=== PATIENT | female | born 1945 | race Caucasian/White ===

== ENCOUNTER 2017-01-26 19:51 | Inpatient (IN) | payer OTHER, MEDICARE ==
[~2017-01-26] VITALS: Ht 157.5 cm; Wt 56.0 kg
[~2017-01-26 19:51] MED LIST: BACT PO; CLIN1CAP6 PO; COUM5TAB PO; LEVO.125 PO; LOSA25TA31 PO; LOVA40TA OR; METH2.5 OR; METO10TA PO; PERC10TA27 PO; TOPR50TA PO; VISI0.053 OP
[2017-01-26 20:00] VITALS: BP 94/51; PULSE 102; RESP 20; TEMP 98.7; O2SAT 97
[2017-01-26] MEDS ORDERED: SODIUM CHLORIDE 0.9% FLUSH 10 ML FLUSH IVF PRN ×2 (20:15→23:00)
[2017-01-26 20:19] VITALS: O2SAT 97
--- NOTE | 2017-01-26 20:21 | PD ---
HPI Chief Complaint: Fall Time Seen by Provider: 20:14 Travel History International Travel<30 days: No Contact w/Intl Traveler<30days: No Traveled to known affect area: No History of Present Illness HPI 71-year-old female presents to the emergency department by EMS transport from home for evaluation of weakness of both lower extremity. According to the patient she has chronic low back pain and has a right buttock in situ neurostimulator. Patient states she was feeling well yesterday preparing breakfast and was sitting down in her chair and fell out of the chair. Patient states she does not recall any precipitating event does not recall being dizzy or having palpitations or chest pain prior to her fall patient states when she did fall of her chair she did land on her back and did hit her head. Patient denies any loss of consciousness. Patient denies any neck pain. Patient denies any upper or lower extremity numbness tingling or weakness at the time of her fall. Patient was able to get up off the floor on her own. Patient states no back pain or pelvic pain abdominal pain chest pain rib pain or shortness of breath. No nausea or vomiting. There is an insect bite or that since last evening she started noticing some weakness in both of her legs. Patient states overnight she found that she was unable to get up off the bed by herself and today contacted her primary care provider Dr. Ragsdale encouraged her to come to the hospital for evaluation. Patient states that she has had no bladder or bowel dysfunction and neighbors helped her get up to the bathroom by caring her to the bathroom so that she could urinate and have a bowel movement. Patient states she does not have any saddle anesthesia. Patient does note new weakness in her lower extremities. Patient has some low back pain. Patient rates her pain 5/10 in intensity. 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 [facility] Past Medical History Narrative Medical Coumadin therapy, dyslipidemia, CVA 3 with left residual, diabetes, hypertension, chronic back pain, nerve stimulator, shingles; hysterectomy; no tobacco use; nursing notes reviewed Hx Anticoagulant Therapy: Yes Arthritis: Yes Cardiovascular Problems: Yes (htn on meds, hx of 5 vessel bypass) High Cholesterol: Yes Cerebrovascular Accident: Yes (x3) Diabetes: Yes Patient Takes Glucophage: No Diminished Hearing: No Hypertension: Yes Musculoskeletal: Yes Neurologic: Yes (neurostimulator left buttock) Integumentary: Yes (?shingles) Triglycerides - High: Yes Tetanus Vaccination: > 5 Years Influenza Vaccination: Yes ?: Not : 1 Para: 1 Past Surgical History Hysterectomy: Yes Social History Alcohol Use: Yes (occ) Tobacco Use: No Substance Use: No Allergies-Medications (Allergen,Severity, Reaction): Coded Allergies: nitrofurantoin (Unverified Allergy, Severe, throat swells, 12/22/16) nystatin (Unverified Allergy, Severe, THROAT SWELLING, 12/22/16) pt states have a allergy to macrodtin Reported Meds & Prescriptions Reported Meds & Active Scripts Active Reported Isosorbide Mononitrate 20 Mg Tab 60 Mg PO DAILY Take 2 doses 7 hours apart. Brimonidine Opth Drops (Brimonidine Tartrate) 0.2% Soln 1 Drop EACH EYE TID Synthroid (Levothyroxine Sodium) 112 Mcg Tab 112 Mcg PO DAILY Lisinopril 20 Mg Tab 20 Mg PO BID Tizanidine (Tizanidine HCl) 4 Mg Cap 4 Mg PO TID Methotrexate 2.5 Mg Tab 7.5 Mg PO Q7D Metoclopramide (Metoclopramide HCl) 10 Mg Tab 10 Mg PO BID Alendronate (Alendronate Sodium) 70 Mg Tab 70 Mg PO Q7D Tramadol (Tramadol HCl) 50 Mg Tab 50 Mg PO Q8H PRN Norvasc (Amlodipine Besylate) 10 Mg Tab 10 Mg PO DAILY Metoprolol Tartrate 50 Mg Tab 50 Mg PO DAILYHS Baclofen 10 Mg Tab 10 Mg PO TID Acyclovir 800 Mg Tab 800 Mg PO 5 TIMES A DAY Gabapentin 300 Mg Cap 300 Mg PO BID Physical Exam Narrative GENERAL: Well-developed well-nourished female in no acute distress no respiratory distress; GCS 15 SKIN: Warm and dry. HEAD: Atraumatic. Normocephalic. Scalp nontender no soft tissue swelling no ecchymosis no abrasion or laceration no bony abnormalities. EYES: Pupils equal and round. Extraocular muscles intact. No scleral icterus. No injection or drainage. ENT: No nasal bleeding or discharge. Mucous membranes pink and moist. Airway is patent. NECK: Trachea midline. No JVD. Neck is nontender to direct palpation along the cervical spine; no midline tenderness no bony step-off. CARDIOVASCULAR: Regular rate and rhythm. Chest wall: Nontender to palpation no point tenderness no ecchymosis or abrasion. RESPIRATORY: No accessory muscle use. Clear to auscultation. Breath sounds equal bilaterally. GASTROINTESTINAL: Abdomen soft, non-tender, nondistended. Hepatic and splenic margins not palpable. MUSCULOSKELETAL: Extremities without clubbing, cyanosis, or edema. No obvious deformities. NEUROLOGICAL: Awake and alert. No obvious cranial nerve deficits. Motor grossly within normal limits. Five out of 5 muscle strength in the bilateral arms and and right lower extremity left lower extremity is 4-5 over 5 against resistance and patient states this is her normal. Pinprick and light touch sensation intact. No clonus. No pronator drift. Normal speech. PSYCHIATRIC: Appropriate mood and affect; insight and judgment normal. Data Data Last Documented VS Vital Signs Date Time Temp Pulse Resp B/P (MAP) Pulse Ox O2 Delivery O2 Flow Rate FiO2 01/26/17 22:52 85 20 142/65 (90) 97 Room Air 01/26/17 20:00 98.7 Orders Orders Electrocardiogram (01/26/17 20:14) Basic Metabolic Panel (Bmp) (01/26/17 20:14) Complete Blood Count With Diff (01/26/17 20:14) Troponin I (01/26/17 20:14) Act Partial Throm Time (Ptt) (01/26/17 20:14) Prothrombin Time / Inr (Pt) (01/26/17 20:14) Urinalysis - C+S If Indicated (01/26/17 20:14) Chest, Single Ap (01/26/17 20:14) Ecg Monitoring (01/26/17 20:14) Iv Access Insert/Monitor (01/26/17 20:14) Oximetry (01/26/17 20:14) Sodium Chloride 0.9% Flush (Ns Flush) (01/26/17 20:15) Spine, Lumbar - Ltd (Ap & Lat) (01/26/17 ) Pelvis, Ap Only (Routine) (01/26/17 ) Ct Brain W/O Iv Contrast(Rout) (01/26/17 ) Type And Screen (01/26/17 21:03) Ct Abd/Pel W/O Iv Contrast (01/26/17 ) Sodium Chlor 0.9% 1000 Ml Inj (Ns 1000 M (01/26/17 21:45) Admit To Inpatient (01/26/17 ) Vital Signs (Adult) Q4H (01/26/17 21:59) Neuro Checks Q4H (01/26/17 21:59) Activity Oob With Assistance (01/26/17 21:59) Blasting Cap Assembler / Telemetry .CONTINUOUS (01/26/17 21:59) Diet Heart Healthy (01/27/17 Breakfast) Sodium Chloride 0.9% Flush (Ns Flush) (01/26/17 22:00) Sodium Chloride 0.9% Flush (Ns Flush) (01/27/17 09:00) Basic Metabolic Panel (Bmp) (01/27/17 06:00) Complete Blood Count With Diff (01/27/17 06:00) Creatine Kinase (Cpk) (01/27/17 03:00) Creatine Kinase (Cpk) (01/27/17 09:00) Troponin I (01/27/17 03:00) Troponin I (01/27/17 09:00) Electrocardiogram (01/27/17 03:00) Electrocardiogram (01/27/17 09:00) Pt Request For Service (01/26/17 21:59) Case Management Consult (01/26/17 21:59) Naloxone Inj (Narcan Inj) (01/26/17 22:00) Inpatient Certification (01/26/17 ) Labs Laboratory Tests Test 01/26/17 20:35 White Blood Count 12.8 TH/MM3 Red Blood Count 4.39 MIL/MM3 Hemoglobin 13.3 GM/DL Hematocrit 39.5 % Mean Corpuscular Volume 90.0 FL Mean Corpuscular Hemoglobin 30.3 PG Mean Corpuscular Hemoglobin Concent 33.7 % Red Cell Distribution Width 13.7 % Platelet Count 445 TH/MM3 Mean Platelet Volume 7.2 FL Neutrophils (%) (Auto) 72.8 % Lymphocytes (%) (Auto) 16.1 % Monocytes (%) (Auto) 10.5 % Eosinophils (%) (Auto) 0.2 % Basophils (%) (Auto) 0.4 % Neutrophils # (Auto) 9.3 TH/MM3 Lymphocytes # (Auto) 2.1 TH/MM3 Monocytes # (Auto) 1.4 TH/MM3 Eosinophils # (Auto) 0.0 TH/MM3 Basophils # (Auto) 0.0 TH/MM3 CBC Comment DIFF FINAL Differential Comment Prothrombin Time 11.7 SEC Prothromb Time International Ratio 1.1 RATIO Activated Partial Thromboplast Time 32.2 SEC Blood Urea Nitrogen 29 MG/DL Creatinine 1.43 MG/DL Random Glucose 133 MG/DL Calcium Level 9.2 MG/DL Sodium Level 130 MEQ/L Potassium Level 3.7 MEQ/L Chloride Level 95 MEQ/L Carbon Dioxide Level 24.8 MEQ/L Anion Gap 10 MEQ/L Estimat Glomerular Filtration Rate 36 ML/MIN Troponin I 0.46 NG/ML [facility] Medical Decision Making Medical Screen Exam Complete: Yes Emergency Medical Condition: Yes Medical Record Reviewed: Yes Interpretation(s) EKG: Sinus tachycardia rate [address] elevation or injury pattern, prominent T waves V3; marked artifact is likely related to in situ neurostimulator questionable QS septally in V1 V2 CT brain w/o contrast: CONCLUSION: 1. Mild periventricular white matter small vessel ischemic changes bilaterally. 2. Probable old tiny lacunar infarcts within the right putamen. 3. Mild cerebral atrophy. 4. No acute hemorrhage, acute infarct, mass effect or extra-axial fluid collections. Vinayak Preciado MD on January 26, 2017 at 21:01 CBC & BMP Diagram 01/26/17 20:35 Calcium Level 9.2 Troponin I 0.47, elevated Last Impressions Chest X-Ray 01/26/172013 Signed Impressions: Service Date/Time: Thursday, January 26, 2017 20:28 - CONCLUSION: No acute cardiopulmonary disease. Vinayak Preciado MD Pelvis X-Ray 01/26/17 0000 Signed Impressions: Service Date/Time: Thursday, January 26, 2017 20:34 - CONCLUSION: 1. No acute fracture or dislocation. 2. Mild degenerative changes and scoliosis of the lower lumbar spine. 3. Mild degenerative changes involving the left hip joint. Vinayak Preciado MD Lumbar Spine X-Ray 01/26/17 0000 Signed Impressions: Service Date/Time: Thursday, January 26, 2017 20:35 - CONCLUSION: 1. Severe degenerative disc disease at L4-5 and L5-S1. 2. Mild compression deformity involving T12 of indeterminate age. 3. Degenerative changes and scoliosis of the lumbar spine. Vinayak Preciado MD Head CT 01/26/17 0000 Signed Impressions: Service Date/Time: Thursday, January 26, 2017 20:34 - CONCLUSION: 1. Mild periventricular white matter small vessel ischemic changes bilaterally. 2. Probable old tiny lacunar infarcts within the right putamen. 3. Mild cerebral atrophy. 4. No acute hemorrhage, acute infarct, mass effect or extra-axial fluid collections. 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 @ 9:45 PM patient reassessed after returning from imaging studies states intermittently having pain into the lower extremities denies any low back pain or buttock pain denies any numbness; rectal exam performed normal sphincter tone brown stool that is Hemoccult negative; repeat blood pressure 81/47. Patient denies any other concerns or complaints denies chest pain shortness of breath upper back pain or abdominal pain. Patient given bolus of normal saline CT abdomen and pelvis ordered noncontrast in view of renal insufficiency At 11 PM patient has been admitted for generalized weakness, elevated troponin I /non-STEMI and acute kidney injury; patient is aware of elevated troponin I; patient also complains of generalized weakness affecting the lower extremities but now after receiving 1 L of normal saline patient reports that her legs feel fine and she does not complain of any weakness at this time continues to deny any chest pain or shortness of breath denies any nausea has had no vomiting and denies any referred neck jaw upper back shoulder arm pain. Patient still complains of some mild discomfort to her lower lumbar spine which she states is chronic for her. Diagnosis Primary Impression: Generalized weakness Additional Impressions: NSTEMI, initial episode of care WINSOME (acute kidney injury) Margie Nieves MD Jan 26, 2017 20:21
[2017-01-26 20:57] LABS: AUTOMATED NEUTROPHIL # 9.3 TH/MM3 (1.8-7.7); BASOPHIL % 0.4 % (0.0-2.0); EOSINOPHIL % 0.2 % (0.0-4.0); HEMATOCRIT 39.5 % (35.0-46.0); HEMO FLAGS DIFF FINAL; LYMPH % 16.1 % (9.0-44.0); LYMPHOCYTE # 2.1 TH/MM3 (1.0-4.8); MEAN CORPUSCULAR HEMOGLOBIN 30.3 PG (27.0-34.0); MEAN CORPUSCULAR HGB CONC 33.7 % (32.0-36.0); MONO % 10.5 % (0.0-8.0); NEUT % 72.8 % (16.0-70.0); PLATELET COUNT 445 TH/MM3 (150-450); RED BLOOD COUNT 4.39 MIL/MM3 (4.00-5.30); RED CELL DISTRIBUTION WIDTH 13.7 % (11.6-17.2); WHITE BLOOD COUNT 12.8 TH/MM3 (4.0-11.0)
[2017-01-26 21:07] LABS: BICARBONATE 24.8 MEQ/L (21.0-32.0); POTASSIUM 3.7 MEQ/L (3.5-5.1)
[2017-01-26 21:09] LABS: APTT (PATIENT) 32.2 SEC (24.3-30.1); INTERNATIONAL NORMALIZED RATIO 1.1 RATIO; PROTHROMBIN TIME - PATIENT 11.7 SEC (9.8-11.6)
--- NOTE | 2017-01-26 21:15 | RADRPT ---
EXAM DATE/TIME: 01/26/2017 20:28 [facility] COMPARISON: No previous studies available for comparison. INDICATIONS : Fall, chest pain. MEDICAL HISTORY : Cardiovascular disease. SURGICAL HISTORY : CABG. ENCOUNTER: Initial ACUITY: 2 days PAIN SCORE: 1/10 LOCATION: Bilateral chest FINDINGS: Median sternotomy wires are noted status post cardiac surgery. The heart is top normal in size. The pulmonary vascular pattern is normal. The lungs are clear. CONCLUSION: No acute cardiopulmonary disease. Vianyak Preciado MD on January 26, 2017 at 21:13 Board Certified Radiologist. This report was verified electronically.
--- NOTE | 2017-01-26 21:21 | RADRPT ---
EXAM DATE/TIME: 01/26/2017 20:34 [facility] COMPARISON: No previous studies available for comparison. INDICATIONS : Fell and hit head. RADIATION DOSE: 32.94 CTDIvol (mGy) MEDICAL HISTORY : None SURGICAL HISTORY : None. ENCOUNTER: Initial ACUITY: 1 day PAIN SCALE: 5/10 LOCATION: Cranial TECHNIQUE: Multiple contiguous axial images were obtained of the head. Using automated exposure control and adj ustment of the mA and/or kV according to patient size, radiation dose was kept as low as reasonably a chievable to obtain optimal diagnostic quality images. DICOM format image data is available electro nically for review and comparison. FINDINGS: Mild periventricular white matter small vessel ischemic changes are noted bilaterally. Mild cerebral atrophy is noted. There are probable old lacunar infarcts involving the right putamen. There is no acute hemorrhage, midline shift or extra-axial fluid collections. No acute infarction is noted. CONCLUSION: 1. Mild periventricular white matter small vessel ischemic changes bilaterally. 2. Probable old tiny lacunar infarcts within the right putamen. 3. Mild cerebral atrophy. 4. No acute hemorrhage, acute infarct, mass effect or extra-axial fluid collections. Vinayak Preciado MD on January 26, 2017 at 21:01 Board Certified Radiologist. This report was verified electronically.
--- NOTE | 2017-01-26 21:26 | RADRPT ---
EXAM DATE/TIME: 01/26/2017 20:34 [facility] COMPARISON: No previous studies available for comparison. INDICATIONS : Fall, pelvic pain. MEDICAL HISTORY : None. SURGICAL HISTORY : Right hip replacement ENCOUNTER: Initial ACUITY: 2 days PAIN SCORE: 2/10 LOCATION: Bilateral pelvis FINDINGS: There is no acute fracture or dislocation of the bony pelvis. A right total hip replacement is noted. Mild degenerative changes are noted involving the left hip joint. Stimulator device is noted overly ing the left iliac bone. Mild degenerative changes and scoliosis of the lower lumbar spine are noted . CONCLUSION: 1. No acute fracture or dislocation. 2. Mild degenerative changes and scoliosis of the lower lumbar spine. 3. Mild degenerative changes involving the left hip joint. Vinayak Preciado MD on January 26, 2017 at 21:14 Board Certified Radiologist. This report was verified electronically.
--- NOTE | 2017-01-26 21:29 | RADRPT ---
EXAM DATE/TIME: 01/26/2017 20:35 [facility] COMPARISON: No previous studies available for comparison. INDICATIONS : Fall yesterday, low back pain MEDICAL HISTORY : None. SURGICAL HISTORY : Spinal stimulator ENCOUNTER: Initial ACUITY: 2 days PAIN SCORE: 5/10 LOCATION: Low back FINDINGS: Mild degenerative changes and scoliosis of the lumbar spine are noted. There is severe disc space na rrowing at L4-5 and L5-S1 as well as vacuum disc phenomenon at these levels. Mild compression deform ity involving the T12 vertebral body is noted and is of indeterminate age. Clinical correlation is r ecommended. Pain stimulator device is noted with its leads extending into the thoracic spinal canal. CONCLUSION: 1. Severe degenerative disc disease at L4-5 and L5-S1. 2. Mild compression deformity involving T12 of indeterminate age. 3. Degenerative changes and scoliosis of the lumbar spine. Vinayak Preciado MD on January 26, 2017 at 21:15 Board Certified Radiologist. This report was verified electronically.
[2017-01-26] MEDS ORDERED: SODIUM CHLOR 0.9% 1000 ML INJ 1,000 ML IV ONE (21:45)
[2017-01-26 21:50] VITALS: BP 81/42; PULSE 97
[2017-01-26] MEDS ORDERED: SODIUM CHLORIDE 0.9% FLUSH 10 ML FLUSH IV FLUSH PRN (22:00)
[2017-01-26] MEDS ORDERED: NALOXONE HCL 0.4 MG/ML AMP IV PUSH PRN (22:00)
[2017-01-26] MEDS: SODIUM CHLORIDE 0.9% FLUSH 10 ML FLUSH IV FLUSH SCH (22:12)
[2017-01-26] MEDS ORDERED: TIZA4CAP3 PO (22:23)
[2017-01-26] MEDS ORDERED: BACL10TA PO (22:23)
[2017-01-26] MEDS ORDERED: METH2.5T PO (22:23)
[2017-01-26] MEDS ORDERED: METO50TA PO (22:23)
[2017-01-26] MEDS ORDERED: METO10TA PO (22:23)
[2017-01-26] MEDS ORDERED: AMLO10 PO (22:23)
[2017-01-26] MEDS ORDERED: GABA300C5 PO (22:23)
[2017-01-26] MEDS ORDERED: ACYC800T PO (22:23)
[2017-01-26] MEDS ORDERED: SYNT112T PO (22:23)
[2017-01-26] MEDS ORDERED: ALEN1TAB48 PO (22:23)
[2017-01-26] MEDS ORDERED: TRAM50TA PO (22:23)
[2017-01-26] MEDS ORDERED: LISI-515 PO (22:23)
[2017-01-26] MEDS ORDERED: BRIM0.2S4 EACH EYE (22:24)
[2017-01-26] MEDS ORDERED: ISOS20TA PO (22:24)
--- NOTE | 2017-01-26 22:46 | RADRPT ---
EXAM DATE/TIME: 01/26/2017 22:01 [facility] COMPARISON: No previous studies available for comparison. INDICATIONS : Trauma, fall. Lower back pain. ORAL CONTRAST: No oral contrast ingested. RADIATION DOSE: 9.96 CTDIvol (mGy) MEDICAL HISTORY : Hypertension. Cardiovascular disease Cerebrovascular disease. Diabetes. SURGICAL HISTORY : Hysterectomy. CABG Neurostimulator. ENCOUNTER: Initial ACUITY: 1 day PAIN SCALE: 5/10 LOCATION: Bilateral lower quadrant TECHNIQUE: Volumetric scanning of the abdomen and pelvis was performed. Using automated exposure control and ad justment of the mA and/or kV according to patient size, radiation dose was kept as low as reasonably achievable to obtain optimal diagnostic quality images. DICOM format image data is available electro nically for review and comparison. FINDINGS: Evaluation of the solid organs of the abdomen is limited by the lack of intravenous contrast. Uncomp licated sigmoid diverticulosis is noted. There is no acute diverticulitis. A small hiatal hernia is noted. Vascular calcifications are noted within the both kidneys. There is a mild compression defor mity involving the T12 vertebral body which is likely chronic. Severe degenerative disc disease is n oted at L4=5 and L5-S1. Neurostimulator device is noted with its leads extending into the midthoraci c spine. Mitral annulus calcification is noted. Extensive calcifications are noted involving the ab dominal aorta and visceral arteries. The patient is status post cholecystectomy. Nodular scarring i s noted within the right posterior-lateral lung base. Scoliosis and degenerative changes of the thor acolumbar spine are noted. CONCLUSION: 1. Uncomplicated sigmoid diverticulosis. 2. Mild chronic compression deformity involving T12. 3. Degenerative changes and scoliosis of the thoracolumbar spine. 4. Severe degenerative disc disease at L4-5 and L5-S1. 5. No acute obstructive uropathy. Vinayak Preciado MD on January 26, 2017 at 22:28 Board Certified Radiologist. This report was verified electronically.
[2017-01-26 22:52] VITALS: BP 142/65; PULSE 85; RESP 20; O2SAT 97
[2017-01-26 23:02] VITALS: O2SAT 97
--- NOTE | 2017-01-26 23:25 | EKG ---
Date Performed: 01/26/2017 Time Performed: 20:13:59 PTAGE: 71 years EKG: Normal Sinus rhythm Non-specific ST/T wave changes Possible LVH NO PREVIOUS TRACING DOCTOR: Matt Ulrich Interpretating Date/Time 01/26/2017 23:24:03
--- NOTE | 2017-01-26 23:46 | HHI.HP ---
[facility] Columba Daniels MD Admission Diagnosis nstemi; chronic back pain; winsome Diagnoses: (1) NSTEMI, initial episode of care (2) WINSOME (acute kidney injury) (3) Generalized weakness (4) Chronic back pain Chief Complaint: Generalized weakness; inability to walk Travel History International Travel<30 Days: No Contact w/Intl Traveler <30 Da: No Traveled to Known Affected Are: No History of Present Illness Written by Rayna Woodall, acting as scribe for Dr. Sharma on 01/26/17 at 23:45. The patient states that she was unable to walk at home. She reports pain in her back. She fell yesterday on her back while attempting to stand up from a sitting position in a chair: denies dizziness, palpitations, chest pain, dizziness, diaphoresis, or nausea. She reports that she hit her head when she fell. She was able to get herself up after the fall and was able to walk around but states she was sweating from exertion of getting herself up. Legs were "all wobbly" today; friends came to help her get around and with food. She called her PCP today and he advised her to go to ER History of CVA with residual mild left hemiparesis The patient reports shingles and is taking Neurontin and Acyclovir - has only taken two days worth Denies nausea, vomiting, diarrhea, black or red stool. Dr. Hill pain management Dr. Kitchen cardiology . Review of Systems Except as stated in HPI: all other systems reviewed are Neg Past Family Social History Past Medical History Hypertension Diabetes mellitus DVT in right leg - was on Coumadin for this x 6 months - about 10 - 15 years ago CAD s/p CABG x 5 about 3 years ago CVA 2 - 3 years ago Hypothyroidism Mitral valve disease Denies CHF, atrial fibrillation, COPD, asthma, liver problems, kidney problems, PE, seizures, or cancers . Past Surgical History CABG x 5 - 3 years ago Neurostimulator placement Hysterectomy Cholecystectomy Exploratory laps with lysis of adhesions - multiple (5) Right hip replacement . Reported Medications Reported Meds & Active Scripts Active Reported Isosorbide Mononitrate 20 Mg Tab 60 Mg PO DAILY Take 2 doses 7 hours apart. Brimonidine Opth Drops (Brimonidine Tartrate) 0.2% Soln 1 Drop EACH EYE TID Synthroid (Levothyroxine Sodium) 112 Mcg Tab 112 Mcg PO DAILY Lisinopril 20 Mg Tab 20 Mg PO BID Tizanidine (Tizanidine HCl) 4 Mg Cap 4 Mg PO TID Methotrexate 2.5 Mg Tab 7.5 Mg PO Q7D Metoclopramide (Metoclopramide HCl) 10 Mg Tab 10 Mg PO BID Alendronate (Alendronate Sodium) 70 Mg Tab 70 Mg PO Q7D Tramadol (Tramadol HCl) 50 Mg Tab 50 Mg PO Q8H PRN Norvasc (Amlodipine Besylate) 10 Mg Tab 10 Mg PO DAILY Metoprolol Tartrate 50 Mg Tab 50 Mg PO DAILYHS Baclofen 10 Mg Tab 10 Mg PO TID Acyclovir 800 Mg Tab 800 Mg PO 5 TIMES A DAY Gabapentin 300 Mg Cap 300 Mg PO BID From [facility] pharmacy: Eliquis 2.5 mg BID p.o. Cholesterol medication . Allergies: Coded Allergies: nitrofurantoin (Unverified Allergy, Severe, throat swells, 12/22/16) nystatin (Unverified Allergy, Severe, THROAT SWELLING, 12/22/16) pt states have a allergy to macrodtin Active Ordered Medications Current Medications Sodium Chloride (NS Flush) 2 ml UNSCH PRN IVF FLUSH AFTER USING IV ACCESS; Start 01/26/17 at 20:15; Stop 01/26/17 at 22:06; Status DC Sodium Chloride 1,000 ml @ 999 mls/hr BOLUS ONCE IV Last administered on 01/26t 22:12; Start 01/26/17 at 21:45; Stop 01/26/17 at 22:45; Status DC Sodium Chloride (NS Flush) 2 ml UNSCH PRN IV FLUSH FLUSH AFTER USING IV ACCESS ; Start 01/26/17 at 22:00 Sodium Chloride (NS Flush) 2 ml BID IV FLUSH ; Start 01/27/17 at 09:00 Naloxone HCl (Narcan Inj) 0.4 mg UNSCH PRN IV PUSH SEE LABEL COMMENTS; Start at 22:00 Sodium Chloride (NS Flush) 2 ml BID IV FLUSH ; Start 01/27/17 at 09:00; Stop at 09:00; Status DC Sodium Chloride (NS Flush) 2 ml UNSCH PRN IVF FLUSH AFTER USING IV ACCESS; Start 01/26/17 at 23:00; Stop 01/26/17 at 23:02; Status DC . Family History Mother from colon cancer Father from brain cancer Brother with diabetes mellitus Sisters x 2 with diabetes Social History Quit smoking 10 years ago Occasional glass of wine Denies illicit drugs Lives alone Drives self . Physical Exam Vital Signs Vital Signs Date Time Temp Pulse Resp B/P (MAP) Pulse Ox O2 Delivery O2 Flow Rate FiO2 01/26/17 23:02 97 01/26/17 22:52 85 20 142/65 (90) 97 Room Air 01/26/17 21:50 97 81/42 (55) 01/26/17 20:19 97 Room Air 01/26/17 20:00 98.7 102 20 94/51 (65) 97 Physical Exam GENERAL: This is an elderly female patient, in no apparent distress. SKIN: No rashes, ecchymoses or lesions. Cool and dry. HEAD: Atraumatic. Normocephalic. EYES: No scleral icterus. No injection or drainage. ENT: Nose without bleeding, purulent drainage or septal hematoma. Airway patent. NECK: Trachea midline. No JVD or lymphadenopathy. Supple, nontender, no meningeal signs. CARDIOVASCULAR: Regular rate and rhythm without gallops or rubs. + systolic murmur auscultated throughout the precordium. RESPIRATORY: Clear to auscultation. Breath sounds equal bilaterally. No wheezes , rales, or rhonchi. GASTROINTESTINAL: Abdomen soft, non-tender, nondistended. MUSCULOSKELETAL: Extremities without clubbing, cyanosis, or edema. No calf tenderness. NEUROLOGICAL: Awake and alert. Motor and sensory grossly within normal limits. Normal speech. . Laboratory Laboratory Tests Test 01/26/17 20:35 White Blood Count 12.8 Red Blood Count 4.39 Hemoglobin 13.3 Hematocrit 39.5 Mean Corpuscular Volume 90.0 Mean Corpuscular Hemoglobin 30.3 Mean Corpuscular Hemoglobin Concent 33.7 Red Cell Distribution Width 13.7 Platelet Count 445 Mean Platelet Volume 7.2 Neutrophils (%) (Auto) 72.8 Lymphocytes (%) (Auto) 16.1 Monocytes (%) (Auto) 10.5 Eosinophils (%) (Auto) 0.2 Basophils (%) (Auto) 0.4 Neutrophils # (Auto) 9.3 Lymphocytes # (Auto) 2.1 Monocytes # (Auto) 1.4 Eosinophils # (Auto) 0.0 Basophils # (Auto) 0.0 CBC Comment DIFF FINAL Differential Comment Prothrombin Time 11.7 Prothromb Time International Ratio 1.1 Activated Partial Thromboplast Time 32.2 Blood Urea Nitrogen 29 Creatinine 1.43 Random Glucose 133 Calcium Level 9.2 Sodium Level 130 Potassium Level 3.7 Chloride Level 95 Carbon Dioxide Level 24.8 Anion Gap 10 Estimat Glomerular Filtration Rate 36 Troponin I 0.46 Result Diagram: 01/26/17203401/26/172034 Imaging Last Impressions Chest X-Ray 01/26/172013 Signed Impressions: Service Date/Time: Thursday, January 26, 2017 20:28 - CONCLUSION: No acute cardiopulmonary disease. Vinayak Preciado MD Pelvis X-Ray 01/26/17 0000 Signed Impressions: Service Date/Time: Thursday, January 26, 2017 20:34 - CONCLUSION: 1. No acute fracture or dislocation. 2. Mild degenerative changes and scoliosis of the lower lumbar spine. 3. Mild degenerative changes involving the left hip joint. Vinayak Preciado MD Lumbar Spine X-Ray 01/26/17 0000 Signed Impressions: Service Date/Time: Thursday, January 26, 2017 20:35 - CONCLUSION: 1. Severe degenerative disc disease at L4-5 and L5-S1. 2. Mild compression deformity involving T12 of indeterminate age. 3. Degenerative changes and scoliosis of the lumbar spine. Vinayak Preciado MD Head CT 01/26/17 0000 Signed Impressions: Service Date/Time: Thursday, January 26, 2017 20:34 - CONCLUSION: 1. Mild periventricular white matter small vessel ischemic changes bilaterally. 2. Probable old tiny lacunar infarcts within the right putamen. 3. Mild cerebral atrophy. 4. No acute hemorrhage, acute infarct, mass effect or extra-axial fluid collections. Vinayak Preciado MD . Caprini VTE Risk Assessment Caprini VTE Risk Assessment: Mod/High Risk (score >= 2) Caprini Risk Assessment Model Point Value = 1 Point Value = 2 Point Value = 3 Point Value = 5 Age 41-60 Minor surgery BMI > 25 kg/m2 Swollen legs Varicose veins or History of unexplained or recurrent spontaneous Oral contraceptives or hormone replacement Sepsis (< 1 month) Serious lung disease, including pneumonia (< 1 month) Abnormal pulmonary function Acute myocardial infarction Congestive heart failure (< 1 month) History of inflammatory bowel disease Medical patient at bed rest Age 61-74 Arthroscopic surgery Major open surgery (> 45 min) Laparoscopic surgery (> 45 min) Malignancy Confined to bed (> 72 hours) Immobilizing plaster cast Central venous access Age >= 75 History of VTE Family history of VTE Factor V Leiden Prothrombin [id number] Lupus anticoagulant Anticardiolipin antibodies Elevated serum homocysteine Heparin-induced thrombocytopenia Other congenital or acquired thrombophilia Stroke (< 1 month) Elective arthroplasty Hip, pelvis, or leg fracture Acute spinal cord injury (< 1 month) Prophylaxis Regimen Total Risk Factor Score Risk Level Prophylaxis Regimen 0-1 Low Early ambulation 2 Moderate Order ONE of the following: *Sequential Compression Device (SCD) *Heparin 5000 units SQ BID 3-4 Higher Order ONE of the following medications: *Heparin 5000 units SQ TID *Enoxaparin/Lovenox 40 mg SQ daily (WT < 150 kg, CrCl > 30 mL/min) *Enoxaparin/Lovenox 30 mg SQ daily (WT < 150 kg, CrCl > 10-29 mL/min) *Enoxaparin/Lovenox 30 mg SQ BID (WT < 150 kg, CrCl > 30 mL/min) AND/OR *Sequential Compression Device (SCD) 5 or more Highest Order ONE of the following medications: *Heparin 5000 units SQ TID (Preferred with Epidurals) *Enoxaparin/Lovenox 40 mg SQ daily (WT < 150 kg, CrCl > 30 mL/min) *Enoxaparin/Lovenox 30 mg SQ daily (WT < 150 kg, CrCl > 10-29 mL/min) *Enoxaparin/Lovenox 30 mg SQ BID (WT < 150 kg, CrCl > 30 mL/min) AND *Sequential Compression Device (SCD) Assessment and Plan Problem List: (1) NSTEMI, initial episode of care ICD Code: I21.4 - Non-ST elevation (NSTEMI) myocardial infarction Status: Acute (2) WINSOME (acute kidney injury) ICD Code: N17.9 - Acute kidney failure, unspecified Status: Acute (3) Generalized weakness ICD Code: R53.1 - Weakness Status: Acute (4) Chronic back pain ICD Code: M54.9 - Dorsalgia, unspecified; G89.29 - Other chronic pain Status: Acute Assessment and Plan 71 y/o female who presented to the ED for evaluation of weakness and inability to ambulate NSTEMI - Initial troponin I 0.46 - serial EKGs and cardiac enzymes - continuous cardiac telemetry to monitor for arrhythmia - consult Dr. Kitchen - assistance appreciated - monitor vital signs q4h - Heparin drip for anticoagulation Acute Kidney Injury - likely related to dehydration - BUN 29, creatinine 1.43, and estimated GFR 36 - received IVF hydration bolus of NS 1 liter in ED - recheck BMP in a.m. and follow trends in renal indices - avoid nephrotoxins Generalized Weakness Symptomatic Hypotension - BP dropped as low as 81/42 in ED - received IVF bolus in ED with improvement in symptoms and blood pressure to 142/65 - consult physical therapy Chronic back pain - neurostimulator in place DVT prophylaxis - Heparin drip for now This note was transcribed by scribjohana [Rayna Woodall]. I, Dr. Rona Sharma personally performed the history, physical exam, and medical decision making; and confirmed the accuracy of the information in the transcribed note. Authenticated by Dr. Rona Sharma on 01/26/17 at 23:45. Discussed Condition With ER physician, patient, and PROTOTYPER . Physician Certification 2 Midnight Certification Type: Admission for Inpatient Services Order for Inpatient Services The services are ordered in accordance with Medicare regulations or non- Medicare payer requirements, as applicable. In the case of services not specified as inpatient-only, they are appropriately provided as inpatient services in accordance with the 2-midnight benchmark. Estimated LOS (days): 3 days is the estimated time the patient will need to remain in the hospital, assuming treatment plan goals are met and no additional complications. Post-Hospital Plan: Not yet determined Rayna Woodall Jan 26, 2017 23:46 Rona Sharma MD Jan 27, 2017 09:44
[2017-01-27] VITALS (24 sets, daily range): BP systolic 88–135; BP diastolic 52–72; PULSE 72–106; RESP 16–18; TEMP 97.9–98.8; O2SAT 94–99
[2017-01-27] MEDS ORDERED: HEPARIN-D5W 25,000 U/250 ML 250 ML IV PRN (00:45)
[2017-01-27 04:28] LABS: AUTOMATED NEUTROPHIL # 6.3 TH/MM3 (1.8-7.7); BASOPHIL % 0.4 % (0.0-2.0); EOSINOPHIL % 0.5 % (0.0-4.0); HEMO FLAGS DIFF FINAL; LYMPH % 24.9 % (9.0-44.0); LYMPHOCYTE # 2.5 TH/MM3 (1.0-4.8); MEAN CELL VOLUME 90.5 FL (80.0-100.0); MEAN CORPUSCULAR HEMOGLOBIN 30.5 PG (27.0-34.0); MEAN CORPUSCULAR HGB CONC 33.7 % (32.0-36.0); MONO % 10.6 % (0.0-8.0); NEUT % 63.6 % (16.0-70.0); PLATELET COUNT 352 TH/MM3 (150-450); RED BLOOD COUNT 4.09 MIL/MM3 (4.00-5.30); RED CELL DISTRIBUTION WIDTH 13.6 % (11.6-17.2); WHITE BLOOD COUNT 9.9 TH/MM3 (4.0-11.0)
[2017-01-27 04:44] LABS: APTT (PATIENT) 38.7 SEC (24.3-30.1)
[2017-01-27 05:30] LABS: BICARBONATE 27.2 MEQ/L (21.0-32.0)
[2017-01-27 05:38] LABS: POTASSIUM 2.9 MEQ/L (3.5-5.1)
[2017-01-27] MEDS: ASPIRIN EC 325 MG TABEC PO SCH ×3 (06:00→09:18)
[2017-01-27] MEDS: MORPHINE SULFATE 4 MG/ML INJ IV PUSH PRN ×3 (06:00→10:46)
[2017-01-27] MEDS: ACYCLOVIR 800 MG TAB PO SCH ×5 (06:03→21:23)
[2017-01-27] MEDS: LEVOTHYROXINE SODIUM 112 MCG TAB PO SCH (06:03)
[2017-01-27 07:15] LABS: BLOOD, URINE NEG (NEG); COMMENT (UR) CULT NOT INDICATED; CULTURE IF INDICATED CULT NOT INDICATED; GLUCOSE,URINE NEG (NEG); HYALINE CAST, URINE 4 /lpf (RARE); KETONE, URINE NEG (NEG); MUCUS URINE FEW /lpf (OCC); NITRITE,URINE NEG (NEG); SQUAMOUS EPITHELIAL CELL URINE <1 /hpf (0-5); URINE COLOR YELLOW (YELLW/STRAW)
[2017-01-27] MEDS: POTASSIUM CHLOR 20 MEQ PREMIX 100 ML IV SCH ×2 (07:35→10:00)
[2017-01-27] MEDS ORDERED: POTASSIUM CHLORIDE 20 MEQ CONTROLLED RELEASE TAB PO ONE (08:00)
--- NOTE | 2017-01-27 08:23 | MB ---
cc: COBY ZAVALA DATE OF CONSULTATION 01/27/2017 REASON FOR CONSULTATION Abnormal troponin level HISTORY OF PRESENT ILLNESS The patient is a 71-year-old white female with a history of coronary artery disease, CVA, hyperlipidemia, hypertension who presented to the hospital mainly with complaints of pelvic and back pain. About two days ago, she was sitting in a chair watching TV when she may have slipped off the chair or lost her balance upon standing when she fell backwards. Throughout the day, she felt generalized weakness particularly in her legs. Troponin levels were checked here in hospital and found to be slightly abnormal. The patient denies any recent chest pain, shortness of breath, dizziness, syncope, near-syncope, palpitations, pedal edema, paroxysmal nocturnal dyspnea. PAST MEDICAL HISTORY 1. Hypertension 2. Hyperlipidemia 3. Hypothyroidism 4. CVA after her bypass surgery with some residual left-sided hemiparesis. 5. Coronary artery disease status post five-vessel bypass surgery 04/26/13 with a left internal mammary artery to the LAD and four vein grafts to the first obtuse marginal, second obtuse marginal, posterior descending artery, diagonal. Her last heart catheterization was 11/06/2015 showing widely patent grafts except for an occluded sequential to the second obtuse marginal. Her ejection fraction at that time of 70%. CARDIAC MEDICATIONS 1. Isosorbide mononitrate 60 mg daily 2. Lisinopril 20 mg b.i.d. 3. Amlodipine 10 mg daily 4. Metoprolol tartrate 50 mg q.h.s. 5. Eliquis 2.5 mg b.i.d. ALLERGIES NYSTATIN, NITROFURANTOIN FAMILY HISTORY Noncontributory SOCIAL HISTORY The patient is a former smoker. She drinks occasional wine. REVIEW OF SYSTEMS As in the history of present illness otherwise negative or noncontributory. She also denies headache, visual changes, abdominal pain, melena, dyspepsia, bright red blood per rectum. PHYSICAL EXAM On physical examination, her blood pressure is 110/56 with a pulse of 98, respirations 16. GENERAL: She is a well-developed, well-nourished white female in no acute distress HEENT: On examination, jugular venous pressure is normal. Carotid pulses are 2+ bilaterally and without bruits. CHEST: Examination of the chest reveals unlabored respiratory effort with clear lung estrada. CARDIAC: On cardiac examination, she has a regular rhythm and rate with a grade 2/6 systolic ejection murmur heard throughout the precordium. The S2 heart sound is mildly diminished at the right upper sternal border. No gallop is audible. ABDOMEN: On abdominal examination, she has a soft, nontender abdomen. Bowel sounds are present. There is no definite hepatosplenomegaly. EXTREMITIES: Examination of the extremities reveals no clubbing, cyanosis or edema. LABORATORY DATA Includes potassium 2.9, BUN 29, creatinine 1.43, troponin 0.61, CK 45. WBC 9.9, hemoglobin 12.5, platelets 352. Chest x-ray shows no acute disease. EKG shows normal sinus rhythm, normal EKG. IMPRESSION Slightly elevated troponin levels in this 71-year-old white female with a history of coronary artery disease, hypertension, hyperlipidemia, CVA. Overall, I doubt the elevated troponin level is due to acute coronary syndrome. She has had no recent angina symptoms. EKG is normal. CK level is normal. She had a heart catheterization just last year showing widely patent bypass grafts except a small sequential vein graft to the second obtuse marginal. The patient denies any syncope. She has had no evidence for arrhythmias here on monitoring so far. RECOMMENDATIONS 1. No additional cardiac workup at this time. 2. She is cleared for discharge from my standpoint. 3. Ideally her metoprolol tartrate should be bid dosing; recommend changing it to 25 mg bid. MD CINDA Galeano/ANJANA /7:51 AM /8:12 AM MTDGerda
[2017-01-27] MEDS ORDERED: SODIUM CHLORIDE 0.9% FLUSH 10 ML FLUSH IV FLUSH SCH (09:00)
[2017-01-27] MEDS ORDERED: APIXABAN 2.5 MG TABLET PO SCH (09:00)
[2017-01-27] MEDS ORDERED: ISOSORBIDE MONONITRATE 60 MG TAB PO SCH (09:00)
[2017-01-27] MEDS: BRIMONIDINE TARTRATE 0.2% OPHT SOLN 5 ML BTL EACH EYE SCH ×3 (09:13→18:06)
[2017-01-27] MEDS: BACLOFEN 10 MG TAB PO SCH ×3 (09:15→18:06)
[2017-01-27] MEDS: PRAVASTATIN SOD 40 MG TAB PO SCH (09:16)
[2017-01-27] MEDS: GABAPENTIN 300 MG CAP PO SCH ×2 (09:16→21:22)
[2017-01-27] MEDS: METOCLOPRAMIDE HCL 10 MG TAB PO SCH ×2 (09:27→21:22)
[2017-01-27] MEDS ORDERED: SODIUM CHLORID 0.9% 500 ML INJ 500 ML IV ONE (12:15)
[2017-01-27 12:56] LABS: APTT (PATIENT) 39.2 SEC (24.3-30.1)
[2017-01-27] MEDS ORDERED: POTASSIUM CHLORIDE 10 MEQ CONTROLLED RELEASE TAB PO ONE (13:00)
--- NOTE | 2017-01-27 14:01 | EKG ---
Date Performed: 01/27/2017 Time Performed: 09:24:54 PTAGE: 71 years EKG: Sinus rhythm Possible left atrial abnormality Left ventricular hypertrophy Lateral ST-T changes are probably due to ventricular hypertrophy Abnormal ECG PREVIOUS TRACING : 01/27/2017 03.12 Compared to prior tracing no significant change DOCTOR: Matt Ulrich Interpretating Date/Time 01/27/2017 13:59:18
[2017-01-27] MEDS: NS + KCL 40 MEQ INJ 1,000 ML IV SCH (14:31)
[2017-01-27] MEDS: oxyCODONE/ACETAMINOPHEN 5 MG/325 MG TAB PO PRN ×2 (14:42→18:47)
--- NOTE | 2017-01-27 16:12 | HHI.PR ---
Subjective Remarks Deferred entry patient seen earlier at 1300 hrs. A per RN report - patient hypotensive The patient denies chest pain, shortness of breath, dizziness Complaints of weakness, mostly lower extremities Denies diarrhea Denies cough BP in the high 80s. Complains of pain in the right lower chest Objective Vitals Vital Signs Date Time Temp Pulse Resp B/P (MAP) Pulse Ox O2 Delivery O2 Flow Rate FiO2 01/27/17 15:00 98.0 92 18 93/71 (78) 94 01/27/17 15:00 91 01/27/17 14:00 84 01/27/17 13:00 96 01/27/17 12:00 102 01/27/17 11:00 106 01/27/17 11:00 97.9 105 18 88/52 (64) 96 01/27/17 10:59 18 01/27/17 10:00 92 01/27/17 09:00 94 01/27/17 08:00 86 01/27/17 07:52 98.2 90 18 135/72 (93) 96 01/27/17 07:50 89 01/27/17 06:00 98 01/27/17 05:13 95 01/27/17 04:00 90 01/27/17 03:00 86 01/27/17 03:00 98.8 97 16 110/56 (74) 97 01/27/17 02:00 86 01/27/17 01:00 96 01/27/17 01:00 98.0 91 18 121/62 (81) 97 01/26/17 23:02 97 01/26/17 22:52 85 20 142/65 (90) 97 Room Air 01/26/17 21:50 97 81/42 (55) 01/26/17 20:19 97 Room Air 01/26/17 20:00 98.7 102 20 94/51 (65) 97 I/O 01/26/17 01/26/17 01/26/17 01/27/17 01/27/17 01/27/17 07:00 15:00 23:00 07:00 15:00 23:00 Intake Total 1259 ml 530 ml Balance 1259 ml 530 ml Intake Oral 240 ml IV Total 1019 ml 530 ml Bladder Scan Volume Amount 491 ml Result Diagram: 01/27/17 0350 01/27/17 0350 Imaging Last Impressions Chest X-Ray 01/26/172013 Signed Impressions: Service Date/Time: Thursday, January 26, 2017 20:28 - CONCLUSION: No acute cardiopulmonary disease. Vinayak Preciado MD Pelvis X-Ray 01/26/17 0000 Signed Impressions: Service Date/Time: Thursday, January 26, 2017 20:34 - CONCLUSION: 1. No acute fracture or dislocation. 2. Mild degenerative changes and scoliosis of the lower lumbar spine. 3. Mild degenerative changes involving the left hip joint. Vinayak Preciado MD Lumbar Spine X-Ray 01/26/17 0000 Signed Impressions: Service Date/Time: Thursday, January 26, 2017 20:35 - CONCLUSION: 1. Severe degenerative disc disease at L4-5 and L5-S1. 2. Mild compression deformity involving T12 of indeterminate age. 3. Degenerative changes and scoliosis of the lumbar spine. Vinayak Preciado MD Head CT 01/26/17 0000 Signed Impressions: Service Date/Time: Thursday, January 26, 2017 20:34 - CONCLUSION: 1. Mild periventricular white matter small vessel ischemic changes bilaterally. 2. Probable old tiny lacunar infarcts within the right putamen. 3. Mild cerebral atrophy. 4. No acute hemorrhage, acute infarct, mass effect or extra-axial fluid collections. Vinayak Preciado MD Abdomen/Pelvis CT 01/26/17 0000 Signed Impressions: Service Date/Time: Thursday, January 26, 2017 22:01 - CONCLUSION: 1. Uncomplicated sigmoid diverticulosis. 2. Mild chronic compression deformity involving T12. 3. Degenerative changes and scoliosis of the thoracolumbar spine. 4. Severe degenerative disc disease at L4-5 and L5-S1. 5. No acute obstructive uropathy. Vinayak Preciado MD Objective Remarks GENERAL: This is an elderly frail female patient, in no apparent distress. SKIN: There is a rash on the right lower chest following dermatome distribution. HEAD: Atraumatic. Normocephalic. EYES: No scleral icterus. No injection or drainage. ENT: Nose without bleeding, purulent drainage or septal hematoma. Airway patent. Dry mucus membranes. NECK: Trachea midline. No JVD or lymphadenopathy. Supple, nontender, no meningeal signs. CARDIOVASCULAR: Regular rate and rhythm without gallops or rubs. + systolic murmur auscultated throughout the precordium. RESPIRATORY: Clear to auscultation. Breath sounds equal bilaterally. No wheezes , rales, or rhonchi. GASTROINTESTINAL: Abdomen soft, non-tender, nondistended. MUSCULOSKELETAL: Extremities without clubbing, cyanosis, or edema. No calf tenderness. NEUROLOGICAL: Awake and alert. Motor and sensory grossly within normal limits. Normal speech. Medications and IVs Current Medications Medications (Trade) Dose Ordered Sig/Renee Route Start Time Stop Time Status Last Admin (NS Flush) 2 ml UNSCH PRN IV FLUSH 01/26/17 22:00 (NS Flush) 2 ml BID IV FLUSH 01/27/17 09:00 (Narcan Inj) 0.4 mg UNSCH PRN IV PUSH 01/26/17 22:00 (Pravachol) 40 mg DAILY PO 01/27/17 09:00 01/27/17 09:16 Heparin Sodium/ Dextrose 250 ml @ 6 mls/hr TITRATE PRN IV 01/27/17 00:45 01/27/17 01:34 (Zovirax) 800 mg 5 TIMES A DAY PO 01/27/17 06:00 01/27/17 14:34 (Norvasc) 10 mg DAILY PO 01/27/17 09:00 Future Hold 01/27/17 09:17 (Lioresal) 10 mg TID PO 01/27/17 09:00 01/27/17 14:31 (Alphagan 0.2% Opth Soln) 1 drop TID EACH EYE 01/27/17 09:00 01/27/17 09:13 (Neurontin) 300 mg BID PO 01/27/17 09:00 01/27/17 09:16 (Imdur) 60 mg DAILY PO 01/27/17 09:00 Future Hold 01/27/17 09:14 (Synthroid) 112 mcg DAILY@0600 PO 01/27/17 06:00 01/27/17 06:03 (Reglan) 10 mg BID PO 01/27/17 09:00 01/27/17 09:27 (Zanaflex) 4 mg TID PO 01/27/17 09:00 01/27/17 14:32 (Ecotrin Ec) 325 mg DAILY PO 01/27/17 06:10 01/27/17 09:18 (Percocet 5-325 Mg) 1 tab Q4H PRN PO 01/27/17 13:15 01/27/17 14:42 (Percocet 5-325 Mg) 2 tab Q4H PRN PO 01/27/17 13:15 Potassium Chloride/Sodium Chloride 1,000 ml @ 84 mls/hr [id number] IV 01/27/17 13:15 01/27/17 14:31 A/P Problem List: (1) NSTEMI, initial episode of care ICD Code: I21.4 - Non-ST elevation (NSTEMI) myocardial infarction Status: Acute (2) WINSOME (acute kidney injury) ICD Code: N17.9 - Acute kidney failure, unspecified Status: Acute (3) Generalized weakness ICD Code: R53.1 - Weakness Status: Acute (4) Chronic back pain ICD Code: M54.9 - Dorsalgia, unspecified; G89.29 - Other chronic pain Status: Acute Assessment and Plan 71 y/o female who presented to the ED for evaluation of weakness and inability to ambulate. The patient has a rash on the lower chest which is probably secondary to shingles. The patient was avoided by cardiology and no further workup recommended, in fact the patient has been clear by cardiology to be discharged. However, the patient hypotensive on admission and following on 01/27 , possibly related to morphine administration and dehydration. The patient will start IV fluids and discharge is pending improvement of blood pressure. NSTEMI - Initial troponin I 0.46 - serial EKGs and cardiac enzymes - continuous cardiac telemetry to monitor for arrhythmia - consult Dr. Kitchen - assistance appreciated - monitor vital signs q4h - Heparin drip for anticoagulation - 01/27 cardiology consulted. No further workup at this time. Clear to discharge as per cardiology recommendations. Metoprolol started at twice a day , however will hold for now since patient getting hypotensive. Discontinue heparin drip. Troponin checked and stable, not trending up any more. 0.4 --> 0.61 -->0.60 Acute Kidney Injury - likely related to dehydration - BUN 29, creatinine 1.43, and estimated GFR 36 - received IVF hydration bolus of NS 1 liter in ED - avoid nephrotoxins 01/27 improving with improved creatinine down to 0.93. I will start the patient on IV fluids given hypotension. Generalized Weakness Symptomatic Hypotension - BP dropped as low as 81/42 in ED - received IVF bolus in ED with improvement in symptoms and blood pressure to 142/65 - consult physical therapy - 01/27 blood pressure still dropping, ordered a normal saline bolus of 500 MLS, continue to monitor vital signs. I will start on maintenance IV fluids with normal saline plus potassium chloride. - Patient evaluated by PT - recommends rehab vs home with home health and the use of a bedside commode. Chronic back pain - neurostimulator in place Hypotension - Likely related to dehydration and IV morphine administration. Discontinue IV morphine and will give Percocet as needed for pain. - Ordered a 500 mL normal saline bolus, hold antihypertensive medications including amlodipine and metoprolol, hold Imdur. Continue to monitor vital signs. Hyponatremia Likely secondary to hypovolemic hyponatremia. Improved after normal saline administration. Herpes Zoster - Maculopapular rash over left lower chest with burning and pain. - Will start on Gabapentin once bp better. - Start on Acyclovir. - Continue Pain control with oral Percocet. DVT prophylaxis - Heparin drip for now Discharge Planning Continue to monitor in [facility]. Discharge pending improvement of blood pressure. Yakov López MD Jan 27, 2017 16:12
--- NOTE | 2017-01-27 17:10 | EKG ---
Date Performed: 01/27/2017 Time Performed: 03:12:24 PTAGE: 71 years EKG: Sinus tachycardia Possible left atrial abnormality Lateral ST-T changes are nonspecific Bor derline ECG PREVIOUS TRACING : 01/26/2017 20.13 Compared to prior tracing no significant change DOCTOR: Matt Ulrich Interpretating Date/Time 01/27/2017 17:09:38
--- NOTE | 2017-01-27 17:27 | ECHRPT ---
Indication: MURMUR CONCLUSIONS The left ventricular systolic function is normal with an estimated ejection fraction is >70%. Severe concentric left ventricular hypertrophy. No regional wall motion abnormalities are present. The left atrial size is mildly dilated. Severe mitral annular calcification. [id number] mitral valve regurgitation. Mild mitral valve stenosis. Diffuse calcification of the aortic valve. Pulmonary arterial systolic pressure could not be estimated due to an insufficient tricuspid valve regurgitation doppler jet for measurement. The pulmonary valve is not well visualized. BP: 88 / 52 HR: 64 Rhythm: Sinus MEASUREMENTS (Male / Female) Normal Values Technical Quality:Fair 2D ECHO LV Diastolic Diameter PLAX 1.9 cm 4.2 - 5.9 / 3.9 - 5.3 cm LV Systolic Diameter PLAX 0.8 cm IVS Diastolic Thickness 2.1 cm 0.6 - 1.0 / 0.6 - 0.9 cm LVPW Diastolic Thickness 2.2 cm 0.6 - 1.0 / 0.6 - 0.9 cm LV Relative Wall Thickness 2.3 RV Internal Dim ED PLAX 1.8 cm LVOT Diameter 1.8 cm M-MODE Aortic Root Diameter MM 2.5 cm LA Systolic Diameter MM 3.0 cm LA Ao Ratio MM 1.2 AV Cusp Separation MM 1.6 cm DOPPLER AV Peak Velocity 266.5 cm/s AV Peak Gradient 28.4 mmHg AV Mean Gradient 14.0 mmHg AV Velocity Time Integral 64.4 cm LVOT Peak Velocity 304.0 cm/s LVOT Peak Gradient 37.0 mmHg LVOT Velocity Time Integral 56.3 cm LVOT Cardiac Index 5874.5 cm/minm AV Area Cont Eq vti 2.2 cm AV Area Cont Eq pk 2.9 cm MV Peak Velocity 213.0 cm/s MV Peak Gradient 18.1 mmHg MV Mean Velocity 103.0 cm/s MV Mean Gradient 5.0 mmHg MV Area PHT 5.4 cm Mitral E Point Velocity 81.0 cm/s Mitral A Point Velocity 198.0 cm/s Mitral E to A Ratio 0.4 LV E' Septal Velocity 3.8 cm/s Mitral E to LV E' Septal Ratio 21.3 PV Peak Velocity 113.0 cm/s PV Peak Gradient 5.1 mmHg FINDINGS LEFT VENTRICLE The left ventricular systolic function is normal with an estimated ejection fraction is >70%. Severe concentric left ventricular hypertrophy. No regional wall motion abnormalities are present. RIGHT VENTRICLE Normal right ventricular size and systolic function. LEFT ATRIUM The left atrial size is mildly dilated. RIGHT ATRIUM The right atrial size is normal. ATRIAL SEPTUM Normal atrial septal thickness without atrial level shunting by limited color doppler interrogation. AORTA The aortic root and proximal ascending aorta are normal in size on limited imaging. MITRAL VALVE Severe mitral annular calcification. [id number] mitral valve regurgitation. Mild mitral valve stenosis. AORTIC VALVE Diffuse calcification of the aortic valve. TRICUSPID VALVE Pulmonary arterial systolic pressure could not be estimated due to an insufficient tricuspid valve regurgitation doppler jet for measurement. PULMONARY VALVE The pulmonary valve is not well visualized. VESSELS The inferior vena cava is normal in size. PERICARDIUM No pericardial effusion. Parrish Silvestre MD, FACC (Electronically Signed) Final Date:27 January 2017 17:27
[2017-01-27 20:13] LABS: APTT (PATIENT) 41.2 SEC (24.3-30.1)
[2017-01-27 20:23] LABS: CREATINE KINASE 103 U/L (26-192)
[2017-01-27 20:48] LABS: CKMB 15.2 NG/ML (0.5-3.6)
[2017-01-27] MEDS ORDERED: METOPROLOL TARTRATE 50 MG TAB PO SCH (21:00)
[2017-01-27] MEDS: SODIUM CHLORIDE 0.9% FLUSH 10 ML FLUSH IV FLUSH SCH (21:23)
[2017-01-28] VITALS (21 sets, daily range): BP systolic 122–159; BP diastolic 59–81; PULSE 76–94; RESP 16–18; TEMP 98.3–98.6; O2SAT 95–97
[2017-01-28] MEDS: oxyCODONE/ACETAMINOPHEN 5 MG/325 MG TAB PO PRN ×2 (00:21→11:31)
[2017-01-28] MEDS: NS + KCL 40 MEQ INJ 1,000 ML IV SCH ×2 (00:21→13:05)
[2017-01-28] MEDS: ACYCLOVIR 800 MG TAB PO SCH ×3 (05:14→13:03)
[2017-01-28] MEDS: LEVOTHYROXINE SODIUM 112 MCG TAB PO SCH (05:14)
[2017-01-28] MEDS: BRIMONIDINE TARTRATE 0.2% OPHT SOLN 5 ML BTL EACH EYE SCH ×2 (08:50→13:03)
[2017-01-28] MEDS: ASPIRIN EC 325 MG TABEC PO SCH (08:50)
[2017-01-28] MEDS: SODIUM CHLORIDE 0.9% FLUSH 10 ML FLUSH IV FLUSH SCH (08:51)
[2017-01-28] MEDS: METOCLOPRAMIDE HCL 10 MG TAB PO SCH (08:51)
[2017-01-28] MEDS: BACLOFEN 10 MG TAB PO SCH ×2 (08:51→13:03)
[2017-01-28] MEDS: GABAPENTIN 300 MG CAP PO SCH (08:51)
[2017-01-28] MEDS: PRAVASTATIN SOD 40 MG TAB PO SCH (08:51)
--- NOTE | 2017-01-28 15:05 | HHI.PR ---
Subjective Remarks The patient states that she was unable to walk at home. She reports pain in her back. She fell yesterday on her back while attempting to stand up from a sitting position in a chair: denies dizziness, palpitations, chest pain, dizziness, diaphoresis, or nausea. She reports that she hit her head when she fell. She was able to get herself up after the fall and was able to walk around but states she was sweating from exertion of getting herself up. Legs were "all wobbly" today; friends came to help her get around and with food. She called her PCP today and he advised her to go to ER History of CVA with residual mild left hemiparesis The patient reports shingles and is taking Neurontin and Acyclovir - has only taken two days worth Denies nausea, vomiting, diarrhea, black or red stool. Dr. Hill pain management Dr. Kitchen cardiology IMPROVED TODAY WANTS TO GO HOME IR[facility] RN AND PT Objective Vitals Vital Signs Date Time Temp Pulse Resp B/P (MAP) Pulse Ox O2 Delivery O2 Flow Rate FiO2 01/28/17 11:23 98.5 90 18 153/78 (103) 96 01/28/17 10:00 90 01/28/17 09:00 88 01/28/17 08:00 78 01/28/17 07:36 98.4 80 18 159/70 (99) 97 01/28/17 07:00 85 01/28/17 06:29 81 01/28/17 05:36 93 01/28/17 04:12 80 01/28/17 04:00 79 01/28/17 03:00 98.4 86 144/59 (87) 96 01/28/17 03:00 79 01/28/17 02:00 80 01/28/17 01:00 76 01/28/17 00:00 98.6 88 122/59 (80) 95 01/28/17 00:00 86 01/27/17 23:00 94 01/27/17 22:00 72 01/27/17 21:00 80 01/27/17 20:45 21 01/27/17 20:00 88 01/27/17 19:00 84 115/58 (77) 99 01/27/17 19:00 81 01/27/17 18:00 82 01/27/17 17:00 84 01/27/17 16:00 84 01/27/17 15:45 17 01/27/17 15:00 98.0 92 18 93/71 (78) 94 01/27/17 15:00 91 I/O 01/27/17 01/27/17 01/27/17 01/28/17 01/28/17 01/28/17 07:00 15:00 23:00 07:00 15:00 23:00 Intake Total 1259 ml 530 ml 949.7 ml 1320 ml Output Total 350 ml Balance 1259 ml 530 ml 949.7 ml 970 ml Intake Oral 240 ml 660 ml 480 ml IV Total 1019 ml 530 ml 289.7 ml 840 ml Output Urine Total 350 ml Bladder Scan Volume Amount 491 ml Result Diagram: 01/27/17 0350 01/27/17 0350 Other Results Laboratory Tests Test 01/26/17 20:35 01/27/17 03:50 01/27/17 06:30 01/27/17 11:55 White Blood Count 12.8 TH/MM3 9.9 TH/MM3 Red Blood Count 4.39 MIL/MM3 4.09 MIL/MM3 Hemoglobin 13.3 GM/DL 12.5 GM/DL Hematocrit 39.5 % 37.0 % Mean Corpuscular Volume 90.0 FL 90.5 FL Mean Corpuscular Hemoglobin 30.3 PG 30.5 PG Mean Corpuscular Hemoglobin Concent 33.7 % 33.7 % Red Cell Distribution Width 13.7 % 13.6 % Platelet Count 445 TH/MM3 352 TH/MM3 Mean Platelet Volume 7.2 FL 7.3 FL Neutrophils (%) (Auto) 72.8 % 63.6 % Lymphocytes (%) (Auto) 16.1 % 24.9 % Monocytes (%) (Auto) 10.5 % 10.6 % Eosinophils (%) (Auto) 0.2 % 0.5 % Basophils (%) (Auto) 0.4 % 0.4 % Neutrophils # (Auto) 9.3 TH/MM3 6.3 TH/MM3 Lymphocytes # (Auto) 2.1 TH/MM3 2.5 TH/MM3 Monocytes # (Auto) 1.4 TH/MM3 1.0 TH/MM3 Eosinophils # (Auto) 0.0 TH/MM3 0.0 TH/MM3 Basophils # (Auto) 0.0 TH/MM3 0.0 TH/MM3 CBC Comment DIFF FINAL DIFF FINAL Differential Comment Prothrombin Time 11.7 SEC Prothromb Time International Ratio 1.1 RATIO Activated Partial Thromboplast Time 32.2 SEC 38.7 SEC 39.2 SEC Blood Urea Nitrogen 29 MG/DL 27 MG/DL Creatinine 1.43 MG/DL 0.93 MG/DL Random Glucose 133 MG/DL 142 MG/DL Calcium Level 9.2 MG/DL 8.7 MG/DL Sodium Level 130 MEQ/L 135 MEQ/L Potassium Level 3.7 MEQ/L 2.9 MEQ/L Chloride Level 95 MEQ/L 99 MEQ/L Carbon Dioxide Level 24.8 MEQ/L 27.2 MEQ/L Anion Gap 10 MEQ/L 9 MEQ/L Estimat Glomerular Filtration Rate 36 ML/MIN 59 ML/MIN Troponin I 0.46 NG/ML 0.61 NG/ML Total Creatine Kinase 45 U/L Urine Color YELLOW Urine Turbidity CLEAR Urine pH 6.0 Urine Specific [place] 1.019 Urine Protein 30 mg/dL Urine Glucose (UA) NEG mg/dL Urine Ketones NEG mg/dL Urine Occult Blood NEG Urine Nitrite NEG Urine Bilirubin NEG Urine Urobilinogen LESS THAN 2.0 MG/DL Urine Leukocyte Esterase NEG Urine RBC 1 /hpf Urine WBC LESS THAN 1 /hpf Urine Squamous Epithelial Cells <1 /hpf Urine Hyaline Casts 4 /lpf Urine Mucus FEW /lpf Microscopic Urinalysis Comment CULT NOT INDICATED Test 01/27/17 14:06 01/27/17 19:28 Total Creatine Kinase 52 U/L 103 U/L Troponin I 0.60 NG/ML 1.95 NG/ML Activated Partial Thromboplast Time 41.2 SEC Creatine Kinase MB 15.2 NG/ML Imaging Last Impressions Chest X-Ray 01/26/172013 Signed Impressions: Service Date/Time: Thursday, January 26, 2017 20:28 - CONCLUSION: No acute cardiopulmonary disease. Vinayak Preciado MD Pelvis X-Ray 01/26/17 0000 Signed Impressions: Service Date/Time: Thursday, January 26, 2017 20:34 - CONCLUSION: 1. No acute fracture or dislocation. 2. Mild degenerative changes and scoliosis of the lower lumbar spine. 3. Mild degenerative changes involving the left hip joint. Vinayak Preciado MD Lumbar Spine X-Ray 01/26/17 0000 Signed Impressions: Service Date/Time: Thursday, January 26, 2017 20:35 - CONCLUSION: 1. Severe degenerative disc disease at L4-5 and L5-S1. 2. Mild compression deformity involving T12 of indeterminate age. 3. Degenerative changes and scoliosis of the lumbar spine. Vinayak Preciado MD Head CT 01/26/17 0000 Signed Impressions: Service Date/Time: Thursday, January 26, 2017 20:34 - CONCLUSION: 1. Mild periventricular white matter small vessel ischemic changes bilaterally. 2. Probable old tiny lacunar infarcts within the right putamen. 3. Mild cerebral atrophy. 4. No acute hemorrhage, acute infarct, mass effect or extra-axial fluid collections. Vinayak Preciado MD Abdomen/Pelvis CT 01/26/17 0000 Signed Impressions: Service Date/Time: Thursday, January 26, 2017 22:01 - CONCLUSION: 1. Uncomplicated sigmoid diverticulosis. 2. Mild chronic compression deformity involving T12. 3. Degenerative changes and scoliosis of the thoracolumbar spine. 4. Severe degenerative disc disease at L4-5 and L5-S1. 5. No acute obstructive uropathy. Vinayak Preciado MD Objective Remarks GENERAL: This is an elderly frail female patient, in no apparent distress. SKIN: There is a rash on the right lower chest following dermatome distribution. HEAD: Atraumatic. Normocephalic. EYES: No scleral icterus. No injection or drainage. ENT: Nose without bleeding, purulent drainage or septal hematoma. Airway patent. NECK: Trachea midline. No JVD or lymphadenopathy. Supple, nontender, no meningeal signs. CARDIOVASCULAR: Regular rate and rhythm without gallops or rubs. + systolic murmur auscultated throughout the precordium. RESPIRATORY: Clear to auscultation. Breath sounds equal bilaterally. No wheezes , rales, or rhonchi. GASTROINTESTINAL: Abdomen soft, non-tender, nondistended. MUSCULOSKELETAL: Extremities without clubbing, cyanosis, or edema. No calf tenderness. NEUROLOGICAL: Awake and alert. Motor and sensory grossly within normal limits. Normal speech. CHRONIC TREMOR INSIGHT AND JUDGEMENT ARE GOOD MOOD AND BEHAVIOR ARE APPROPRIATE Procedures none Medications and IVs Current Medications Sodium Chloride (NS Flush) 2 ml UNSCH PRN IVF FLUSH AFTER USING IV ACCESS; Start 01/26/17 at 20:15; Stop 01/26/17 at 22:06; Status DC Sodium Chloride 1,000 ml @ 999 mls/hr BOLUS ONCE IV Last administered on 01/26 22:12; Start 01/26/17 at 21:45; Stop 01/26/17 at 22:45; Status DC Sodium Chloride (NS Flush) 2 ml UNSCH PRN IV FLUSH FLUSH AFTER USING IV ACCESS ; Start 01/26/17 at 22:00 Sodium Chloride (NS Flush) 2 ml BID IV FLUSH Last administered on 01/28/17 08: 51; Start 01/27/17 at 09:00 Naloxone HCl (Narcan Inj) 0.4 mg UNSCH PRN IV PUSH SEE LABEL COMMENTS; Start at 22:00 Sodium Chloride (NS Flush) 2 ml BID IV FLUSH ; Start 01/27/17 at 09:00; Stop at 09:00; Status DC Sodium Chloride (NS Flush) 2 ml UNSCH PRN IVF FLUSH AFTER USING IV ACCESS; Start 01/26/17 at 23:00; Stop 01/26/17 at 23:02; Status DC Apixaban (Eliquis) 2.5 mg BID PO ; Start 01/27/17 at 09:00; Stop 01/27/17 at 09: 00; Status DC Pravastatin Sodium (Pravachol) 40 mg DAILY PO Last administered on 01/28/17 08 :51; Start 01/27/17 at 09:00 Heparin Sodium/ Dextrose 250 ml @ 6 mls/hr TITRATE PRN IV Coagulation management Last administered on 01/27/17 01:34; Start 01/27/17 at 00:45; Stop 01/27/17 at 20:23; Status DC Acyclovir (Zovirax) 800 mg 5 TIMES A DAY PO Last administered on 01/28/17 13: 03; Start 01/27/17 at 06:00 Amlodipine Besylate (Norvasc) 10 mg DAILY PO Last administered on 01/27/17 09: 17; Start 01/27/17 at 09:00; Status Future Hold Baclofen (Lioresal) 10 mg TID PO Last administered on 01/28/17 13:03; Start at 09:00 Brimonidine Tartrate (Alphagan 0.2% Opth Soln) 1 drop TID EACH EYE Last administered on 01/28/17 13:03; Start 01/27/17 at 09:00 Gabapentin (Neurontin) 300 mg BID PO Last administered on 01/28/17 08:51; Start 01/27/17 at 09:00 Isosorbide Mononitrate (Imdur) 60 mg DAILY PO Last administered on 01/27/17 09 :14; Start 01/27/17 at 09:00; Status Future Hold Levothyroxine Sodium (Synthroid) 112 mcg DAILY@0600 PO Last administered on 05:14; Start 01/27/17 at 06:00 Metoclopramide HCl (Reglan) 10 mg BID PO Last administered on 01/28/17 08:51; Start 01/27/17 at 09:00 Metoprolol Tartrate (Lopressor) 50 mg HS PO ; Start 01/27/17 at 21:00; Stop at 21:00; Status DC Tizanidine HCl (Zanaflex) 4 mg TID PO Last administered on 01/27/17 14:32; Start 01/27/17 at 09:00 Aspirin (Ecotrin Ec) 325 mg DAILY PO Last administered on 01/28/17 08:50; Start 01/27/17 at 06:10 Morphine Sulfate (Morphine Inj) 2 mg Q3H PRN IV PUSH pain >5 Last administered on 01/27/17 10:46; Start 01/27/17 at 06:15; Stop 01/27/17 at 13:09; Status DC Potassium Chloride (KCl) 40 meq ONCE ONCE PO Last administered on 01/27/17 07 :34; Start 01/27/17 at 08:00; Stop 01/27/17 at 08:01; Status DC Potassium Chloride 100 ml @ 50 mls/hr Q2H IV Last administered on 01/27/17 07 :35; Start 01/27/17 at 08:00; Stop 01/27/17 at 11:59; Status DC Sodium Chloride 500 ml @ 0 mls/hr BOLUS ONCE IV Last administered on 12:15; Start 01/27/17 at 12:15; Stop 01/27/17 at 12:16; Status DC Potassium Chloride (KCl) 40 meq ONCE ONCE PO Last administered on 01/27/17 14 :33; Start 01/27/17 at 13:00; Stop 01/27/17 at 13:01; Status DC Oxycodone/ Acetaminophen (Percocet 5-325 Mg) 1 tab Q4H PRN PO PAIN SCALE 1 TO 4 Last administered on 01/27/17 18:47; Start 01/27/17 at 13:15 Oxycodone/ Acetaminophen (Percocet 5-325 Mg) 2 tab Q4H PRN PO PAIN SCALE 5 TO 10 Last administered on 01/28/17 11:31; Start 01/27/17 at 13:15 Potassium Chloride/Sodium Chloride 1,000 ml @ 84 mls/hr [id number] IV Last administered on 01/28/17 13:05; Start 01/27/17 at 13:15 Urinary Catheter: Yes Assessment to: Remove Vascular Central Line Catheter: No A/P Problem List: (1) NSTEMI, initial episode of care ICD Code: I21.4 - Non-ST elevation (NSTEMI) myocardial infarction Status: Acute (2) WINSOME (acute kidney injury) ICD Code: N17.9 - Acute kidney failure, unspecified Status: Acute (3) Generalized weakness ICD Code: R53.1 - Weakness Status: Acute (4) Chronic back pain ICD Code: M54.9 - Dorsalgia, unspecified; G89.29 - Other chronic pain Status: Acute Assessment and Plan 71 y/o female who presented to the ED for evaluation of weakness and inability to ambulate. The patient has a rash on the lower chest which is probably secondary to shingles. The patient was avoided by cardiology and no further workup recommended, in fact the patient has been clear by cardiology to be discharged. However, the patient hypotensive on admission and following on 01/27 , possibly related to morphine administration and dehydration. The patient will start IV fluids and discharge is pending improvement of blood pressure. NSTEMI - Initial troponin I 0.46 - serial EKGs and cardiac enzymes - continuous cardiac telemetry to monitor for arrhythmia - consult Dr. Kitchen - assistance appreciated - monitor vital signs q4h - Heparin drip for anticoagulation - 01/27 cardiology consulted. No further workup at this time. Clear to discharge as per cardiology recommendations. Metoprolol started at twice a day , however will hold for now since patient getting hypotensive. Discontinue heparin drip. Troponin checked and stable, not trending up any more. 0.4 --> 0.61 -->0.60 Acute Kidney Injury - likely related to dehydration - BUN 29, creatinine 1.43, and estimated GFR 36 - received IVF hydration bolus of NS 1 liter in ED - avoid nephrotoxins 01/27 improving with improved creatinine down to 0.93. I will start the patient on IV fluids given hypotension. Generalized Weakness Symptomatic Hypotension - BP dropped as low as 81/42 in ED - received IVF bolus in ED with improvement in symptoms and blood pressure to 142/65 - consult physical therapy - 01/27 blood pressure still dropping, ordered a normal saline bolus of 500 MLS, continue to monitor vital signs. I will start on maintenance IV fluids with normal saline plus potassium chloride. - Patient evaluated by PT - recommends rehab vs home with home health and the use of a bedside commode. Chronic back pain - neurostimulator in place Hypotension - Likely related to dehydration and IV morphine administration. Discontinue IV morphine and will give Percocet as needed for pain. - Ordered a 500 mL normal saline bolus, hold antihypertensive medications including amlodipine and metoprolol, hold Imdur. Continue to monitor vital signs. Hyponatremia Likely secondary to hypovolemic hyponatremia. Improved after normal saline administration. Herpes Zoster - Maculopapular rash over left lower chest with burning and pain. - Will start on Gabapentin once bp better. - Start on Acyclovir. - Continue Pain control with oral Percocet. DVT prophylaxis - Heparin drip for now DC TO HOME TODAY [facility] RN AND PT SET UP [facility] DC TO HOME Aleksey Guevara DO Jan 28, 2017 15:05
[2017-01-28] MEDS ORDERED: GABA300C5 PO (15:12)
[2017-01-28] MEDS ORDERED: ISOS20TA PO (15:12)
[2017-01-28] MEDS ORDERED: METO25TA3 PO (15:13)
[2017-01-28] MEDS ORDERED: PRAV40TA PO (15:13)
--- NOTE | 2017-01-28 15:15 | HHI.DS ---
Discharge Summary Admission Date Jan 26, 2017 at 22:59 Discharge Date: Jan 28, 2017 Admitting Diagnosis nstemi; chronic back pain; winsome (1) NSTEMI, initial episode of care ICD Code: I21.4 - Non-ST elevation (NSTEMI) myocardial infarction Status: Acute (2) WINSOME (acute kidney injury) ICD Code: N17.9 - Acute kidney failure, unspecified Diagnosis: Secondary Status: Acute (3) Generalized weakness ICD Code: R53.1 - Weakness Diagnosis: Principal Status: Acute (4) Chronic back pain ICD Code: M54.9 - Dorsalgia, unspecified; G89.29 - Other chronic pain Diagnosis: Secondary Status: Acute Procedures none Brief History - From Admission The patient states that she was unable to walk at home. She reports pain in her back. She fell yesterday on her back while attempting to stand up from a sitting position in a chair: denies dizziness, palpitations, chest pain, dizziness, diaphoresis, or nausea. She reports that she hit her head when she fell. She was able to get herself up after the fall and was able to walk around but states she was sweating from exertion of getting herself up. Legs were "all wobbly" today; friends came to help her get around and with food. She called her PCP today and he advised her to go to ER History of CVA with residual mild left hemiparesis The patient reports shingles and is taking Neurontin and Acyclovir - has only taken two days worth Denies nausea, vomiting, diarrhea, black or red stool. Dr. Hill pain management Dr. Kitchen cardiology . CBC/BMP: 01/27/17 0350 01/27/17 0350 Significant Findings Laboratory Tests Test 01/26/17 20:35 01/27/17 03:50 01/27/17 06:30 01/27/17 11:55 White Blood Count 12.8 TH/MM3 (4.0-11.0) Neutrophils (%) (Auto) 72.8 % (16.0-70.0) Monocytes (%) (Auto) 10.5 % (0.0-8.0) 10.6 % (0.0-8.0) Neutrophils # (Auto) 9.3 TH/MM3 (1.8-7.7) Monocytes # (Auto) 1.4 TH/MM3 (0-0.9) 1.0 TH/MM3 (0-0.9) Prothrombin Time 11.7 SEC (9.8-11.6) Activated Partial Thromboplast Time 32.2 SEC (24.3-30.1) 38.7 SEC (24.3-30.1) 39.2 SEC (24.3-30.1) Blood Urea Nitrogen 29 MG/DL (7-18) 27 MG/DL (7-18) Creatinine 1.43 MG/DL (0.50-1.00) Random Glucose 133 MG/DL (74-106) 142 MG/DL (74-106) Sodium Level 130 MEQ/L (136-145) 135 MEQ/L (136-145) Chloride Level 95 MEQ/L (98-107) Estimat Glomerular Filtration Rate 36 ML/MIN (>89) 59 ML/MIN (>89) Troponin I 0.46 NG/ML (0.02-0.05) 0.61 NG/ML (0.02-0.05) Potassium Level 2.9 MEQ/L (3.5-5.1) Urine Protein 30 mg/dL (NEG-TRACE) Urine Mucus FEW /lpf (OCC) Test 01/27/17 14:06 01/27/17 19:28 Troponin I 0.60 NG/ML (0.02-0.05) 1.95 NG/ML (0.02-0.05) Activated Partial Thromboplast Time 41.2 SEC (24.3-30.1) Creatine Kinase MB 15.2 NG/ML (0.5-3.6) Imaging Last Impressions Chest X-Ray 01/26/172013 Signed Impressions: Service Date/Time: Thursday, January 26, 2017 20:28 - CONCLUSION: No acute cardiopulmonary disease. Vinayak Preciado MD Pelvis X-Ray 01/26/17 0000 Signed Impressions: Service Date/Time: Thursday, January 26, 2017 20:34 - CONCLUSION: 1. No acute fracture or dislocation. 2. Mild degenerative changes and scoliosis of the lower lumbar spine. 3. Mild degenerative changes involving the left hip joint. Vinayak Preciado MD Lumbar Spine X-Ray 01/26/17 0000 Signed Impressions: Service Date/Time: Thursday, January 26, 2017 20:35 - CONCLUSION: 1. Severe degenerative disc disease at L4-5 and L5-S1. 2. Mild compression deformity involving T12 of indeterminate age. 3. Degenerative changes and scoliosis of the lumbar spine. Vinayak Preciado MD Head CT 01/26/17 0000 Signed Impressions: Service Date/Time: Thursday, January 26, 2017 20:34 - CONCLUSION: 1. Mild periventricular white matter small vessel ischemic changes bilaterally. 2. Probable old tiny lacunar infarcts within the right putamen. 3. Mild cerebral atrophy. 4. No acute hemorrhage, acute infarct, mass effect or extra-axial fluid collections. Vinayak Preciado MD Abdomen/Pelvis CT 01/26/17 0000 Signed Impressions: Service Date/Time: Thursday, January 26, 2017 22:01 - CONCLUSION: 1. Uncomplicated sigmoid diverticulosis. 2. Mild chronic compression deformity involving T12. 3. Degenerative changes and scoliosis of the thoracolumbar spine. 4. Severe degenerative disc disease at L4-5 and L5-S1. 5. No acute obstructive uropathy. Vinayak Preciado MD PE at Discharge GENERAL: This is an elderly frail female patient, in no apparent distress. SKIN: There is a rash on the right lower chest following dermatome distribution. HEAD: Atraumatic. Normocephalic. EYES: No scleral icterus. No injection or drainage. ENT: Nose without bleeding, purulent drainage or septal hematoma. Airway patent. NECK: Trachea midline. No JVD or lymphadenopathy. Supple, nontender, no meningeal signs. CARDIOVASCULAR: Regular rate and rhythm without gallops or rubs. + systolic murmur auscultated throughout the precordium. RESPIRATORY: Clear to auscultation. Breath sounds equal bilaterally. No wheezes , rales, or rhonchi. GASTROINTESTINAL: Abdomen soft, non-tender, nondistended. MUSCULOSKELETAL: Extremities without clubbing, cyanosis, or edema. No calf tenderness. NEUROLOGICAL: Awake and alert. Motor and sensory grossly within normal limits. Normal speech. CHRONIC TREMOR INSIGHT AND JUDGEMENT ARE GOOD MOOD AND BEHAVIOR ARE APPROPRIATE Hospital Course The patient states that she was unable to walk at home. She reports pain in her back. She fell yesterday on her back while attempting to stand up from a sitting position in a chair: denies dizziness, palpitations, chest pain, dizziness, diaphoresis, or nausea. She reports that she hit her head when she fell. She was able to get herself up after the fall and was able to walk around but states she was sweating from exertion of getting herself up. Legs were "all wobbly" today; friends came to help her get around and with food. She called her PCP today and he advised her to go to ER History of CVA with residual mild left hemiparesis The patient reports shingles and is taking Neurontin and Acyclovir - has only taken two days worth Denies nausea, vomiting, diarrhea, black or red stool. Dr. Hill pain management Dr. Kitchen cardiology IMPROVED TODAY WANTS TO GO HOME IR[facility] RN AND PT [facility] Pt Condition on Discharge: Stable Discharge Disposition: Disch w/ Home Health Serv Discharge Time: > 30 minutes Discharge Instructions DIET: Follow Instructions for: Heart Healthy Diet Speech Therapy-Diet Recommends: Regular Activities you can perform: Regular-No Restrictions Follow up Referrals: Cardiology - 2 Weeks with Reza Kitchen MD PCP Follow-up - 1 Week with Columba Daniels MD New Medications: Metoprolol Tartrate (Metoprolol Tartrate) 25 Mg Tab 25 MG PO BID for Blood Pressure Management, #60 TAB 0 Refills Pravastatin (Pravachol) 40 Mg Tab 40 MG PO DAILY for Cholesterol Management, #30 TAB Changed Medications: Isosorbide Mononitrate (Isosorbide Mononitrate) 20 Mg Tab 60 MG PO DAILY for Prevent Chest Pain, #90 TAB 0 Refills (Changed from: 60; Removed Instructions) Continued Medications: Acyclovir (Acyclovir) 800 Mg Tab 800 MG PO 5 TIMES A DAY for Mgmt Viral Infection, TAB 0 Refills Alendronate (Alendronate) 70 Mg Tab 70 MG PO Q7D for Osteporosis Treatment, #4 TAB 0 Refills Amlodipine (Norvasc) 10 Mg Tab 10 MG PO DAILY for Blood Pressure Management, #30 TAB 0 Refills Baclofen (Baclofen) 10 Mg Tab 10 MG PO TID for Muscle Spasm, TAB 0 Refills Brimonidine Opth Drops (Brimonidine Opth Drops) 0.2% Soln 1 DROP EACH EYE TID for Intraocular pressure, #1 BOTTLE 0 Refills Gabapentin (Gabapentin) 300 Mg Cap 300 MG PO BID for Pain Management, #60 CAP 0 Refills (This prescription has been renewed) Levothyroxine (Synthroid) 112 Mcg Tab 112 MCG PO DAILY for Thyroid, #30 TAB 0 Refills Lisinopril (Lisinopril) 20 Mg Tab 20 MG PO BID, #30 TAB 0 Refills Methotrexate (Methotrexate) 2.5 Mg Tab 7.5 MG PO Q7D, TAB 0 Refills Metoclopramide (Metoclopramide) 10 Mg Tab 10 MG PO BID, TAB 0 Refills Tizanidine (Tizanidine) 4 Mg Cap 4 MG PO TID for Muscle Spasm, CAP 0 Refills Tramadol (Tramadol) 50 Mg Tab 50 MG PO Q8H PRN for PAIN, TAB 0 Refills Discontinued Medications: Metoprolol Tartrate (Metoprolol Tartrate) 50 Mg Tab 50 MG PO DAilyhs, #30 TAB 0 Refills Aleksey Mcfadden DO Jan 28, 2017 15:15
--- NOTE | 2017-01-28 15:55 | HHI.FF ---
Face to Face Verification Diagnosis: (1) Chronic back pain (2) NSTEMI, initial episode of care (3) WINSOME (acute kidney injury) (4) Generalized weakness Physical Therapy Order: Evaluate and Treat, Improve ambulation, Strength and gait training Occupational Therapy Order: Evaluate and Treat, Improve ADL, Gross motor coordination, Fine motor coordination Home Health Nursing Order: Medical education Nursing assessment with vital signs Telehealth Home Health Aide Order: To Assist In: Bathing and personal care, retail salesperson and meal prep I have seen patient Linsey Ruby on 01/28/17. My clinical findings support the need for the requested home health care services because: Ltd mobility - disease progression Deconditioned w/ increased weakness I certify that my clinical findings support that this patient is homebound because: Unsteady gait/balance Aleksey Mcfadden DO Jan 28, 2017 15:55
== END 2017-01-28 16:45 | disposition home health service (06) | DRG 683 ==
LOC: NEPC 19:51 → NEDA 22:59 → HCIN 01-27 00:51
PROVIDERS: ADMIT Hospitalist; ATTEND Hospitalist
DX: N17.9 Acute kidney failure, unspecified (principal); I69.354 Hemiplegia and hemiparesis following cerebral infarction affecting left non-dominant side; I95.9 Hypotension, unspecified; E87.1 Hypo-osmolality and hyponatremia; B02.9 Zoster without complications; E11.9 Type 2 diabetes mellitus without complications; E86.0 Dehydration; R53.1 Weakness; I10 Essential (primary) hypertension; G89.29 Other chronic pain; M19.90 Unspecified osteoarthritis, unspecified site; I25.10 Atherosclerotic heart disease of native coronary artery without angina pectoris; E03.9 Hypothyroidism, unspecified; Z96.641 Presence of right artificial hip joint; Z96.89 Presence of other specified functional implants; M51.37 Other intervertebral disc degeneration, lumbosacral region; M54.5 Low back pain; E78.5 Hyperlipidemia, unspecified; Z95.1 Presence of aortocoronary bypass graft; Z86.718 Personal history of other venous thrombosis and embolism; Z91.81 History of falling; Z87.891 Personal history of nicotine dependence
CPT/HCPCS: 70450; 71010; 72100; 72170; 74176; 80048; 81001; 82550; 82552; 84484; 85025; 85610; 85730; 86850; 86900; 86901; 93005; 93306; 96360; J1644; J2270; J3480; J7030; J7040

== ENCOUNTER 2017-05-03 14:19 | Emergency (ER) | payer MEDICARE, OTHER ==
[~2017-05-03] VITALS: Ht 172.7 cm; Wt 56.0 kg
[~2017-05-03 14:19] MED LIST changes: +ACYC800T PO; +ALEN1TAB48 PO; +AMLO10 PO; +BACL10TA PO; -BACT PO; +BRIM0.2S4 EACH EYE; -CLIN1CAP6 PO; -COUM5TAB PO; +GABA300C5 PO; +ISOS20TA PO; -LEVO.125 PO; +LISI-515 PO; -LOSA25TA31 PO; -LOVA40TA OR; -METH2.5 OR; +METH2.5T PO; +METO25TA3 PO; -PERC10TA27 PO; +PRAV40TA PO; +SYNT112T PO; +TIZA4CAP3 PO; -TOPR50TA PO; +TRAM50TA PO; -VISI0.053 OP
[2017-05-03 14:25] VITALS: BP 186/77; PULSE 80; RESP 16; TEMP 97.8; O2SAT 98
--- NOTE | 2017-05-03 15:01 | PD ---
HPI Chief Complaint: Back/ Neck Pain or Injury Time Seen by Provider: 14:34 Travel History International Travel<30 days: No Contact w/Intl Traveler<30days: No Traveled to known affect area: No History of Present Illness HPI The patient was seen and examined in the presence of the nurse. This patient complains of back pain. She's been having back pain for 8 years. She has a neurostimulator. She goes to pain management but she complains that they will only give her tramadol. She called and was to come to the ER to get more pain medication. However, when I go into the room to check on her, she is sound asleep and snoring. Denies injury or fever. Severity is mild PFSH Past Medical History Hx Anticoagulant Therapy: Yes Arthritis: Yes Cardiovascular Problems: Yes High Cholesterol: Yes Cerebrovascular Accident: Yes (x3) Diabetes: Yes Patient Takes Glucophage: No Diminished Hearing: No Hypertension: Yes Musculoskeletal: Yes Neurologic: Yes (neurostimulator left buttock) Reproductive: No Integumentary: Yes Triglycerides - High: Yes Tetanus Vaccination: > 5 Years Influenza Vaccination: Yes ?: Not : 1 Para: 1 Past Surgical History Abdominal Surgery: Yes Cardiac Surgery: Yes (CABG) Ear Surgery: No Endocrine Surgery: No Eye Surgery: No Gynecologic Surgery: No Hysterectomy: Yes Oral Surgery: Yes (Denture) Thoracic Surgery: Yes (CABG) Other Surgery: Yes Social History Alcohol Use: Yes (occ) Tobacco Use: No Substance Use: No Allergies-Medications (Allergen,Severity, Reaction): Coded Allergies: nitrofurantoin (Verified Allergy, Severe, throat swells, 05/03/17) nystatin (Verified Allergy, Severe, THROAT SWELLING, 05/03/17) pt states have a allergy to macrodtin Reported Meds & Prescriptions Reported Meds & Active Scripts Active Metoprolol Tartrate 25 Mg Tab 25 Mg PO BID Pravachol (Pravastatin) 40 Mg Tab 40 Mg PO DAILY Isosorbide Mononitrate 20 Mg Tab 60 Mg PO DAILY Gabapentin 300 Mg Cap 300 Mg PO BID Reported Brimonidine Opth Drops (Brimonidine Tartrate) 0.2% Soln 1 Drop EACH EYE TID Synthroid (Levothyroxine Sodium) 112 Mcg Tab 112 Mcg PO DAILY Lisinopril 20 Mg Tab 20 Mg PO BID Tizanidine (Tizanidine HCl) 4 Mg Cap 4 Mg PO TID Methotrexate 2.5 Mg Tab 7.5 Mg PO Q7D Metoclopramide (Metoclopramide HCl) 10 Mg Tab 10 Mg PO BID Alendronate (Alendronate Sodium) 70 Mg Tab 70 Mg PO Q7D Tramadol (Tramadol HCl) 50 Mg Tab 50 Mg PO Q8H PRN Norvasc (Amlodipine Besylate) 10 Mg Tab 10 Mg PO DAILY Baclofen 10 Mg Tab 10 Mg PO TID Review of Systems General / Constitutional: No: Fever HENT: No: Headaches Cardiovascular: No: Chest Pain or Discomfort Physical Exam Narrative GASTROINTESTINAL: Abdomen soft, non-tender, nondistended. Positive bowel sounds. No hepato-splenomegaly, or palpable masses. No guarding. SKIN: Focused skin assessment reveals no rash or ulcers. Skin is warm and dry. Palpation shows no induration or nodules. Back: I don't see erythema or bruising. No midline tenderness NEUROLOGICAL: Awake and alert. Pupils are equal round and reactive. Motor and sensory grossly within normal limits. Five out of 5 muscle strength in all muscle groups. Normal speech. Negative straight leg raise and cross straight leg raise Data Data Last Documented VS Vital Signs Date Time Temp Pulse Resp B/P (MAP) Pulse Ox O2 Delivery O2 Flow Rate FiO2 05/03/17 14:25 97.8 80 16 186/77 (113) 98 MDM Medical Decision Making Medical Screen Exam Complete: Yes Emergency Medical Condition: Yes Medical Record Reviewed: Yes Differential Diagnosis Chronic back pain, flare of chronic pain, lumbar strain Narrative Course I have reviewed the patient's electronic medical record. Patient complains of back pain but is sleeping when I go check on her. I don't think she needs any acute emergent treatment. She should discuss her regimen with her pain management physician. Probably not appropriate for me to change that at this time. Diagnosis Primary Impression: Chronic back pain Qualified Codes: M54.9 - Dorsalgia, unspecified; G89.29 - Other chronic pain Additional Instructions: The patient was advised to follow up with their physician and return if they worsen. Med/Other Pt SpecificInfo: Other Disposition: 01 DISCHARGE HOME Condition: Stable Chris Patel MD May 03, 2017 15:01
[2017-05-03 15:15] VITALS: BP 124/81; TEMP 97.8
== END 2017-05-03 15:15 | disposition home or self-care (01) ==
LOC: NEPD 14:19
DX: M54.9 Dorsalgia, unspecified (principal); G89.29 Other chronic pain; I10 Essential (primary) hypertension; E78.00 Pure hypercholesterolemia, unspecified
CPT/HCPCS: 99282

== ENCOUNTER 2017-08-16 18:41 | Emergency (ER) | payer OTHER ==
[~2017-08-16] VITALS: Ht 154.9 cm; Wt 55.5 kg
[~2017-08-16 18:41] MED LIST changes: -ACYC800T PO
[2017-08-16 18:51] VITALS: BP 149/62; PULSE 67; RESP 16; TEMP 98.6; O2SAT 98
[2017-08-16] MEDS ORDERED: CIPR-9 PO (19:06)
--- NOTE | 2017-08-16 19:08 | PD ---
HPI Chief Complaint: Fall Time Seen by Provider: 19:07 Travel History International Travel<30 days: No Contact w/Intl Traveler<30days: No Traveled to known affect area: No History of Present Illness HPI 72-year-old female arrives by EMS. She fell the parking lot of her chiropractor 's office. She reports a shuffling gait today. She has a neurology appointment on . She denies any numbness tingling weakness. She denies any loss of consciousness. No head trauma. She reports similar symptoms previously. PFSH Past Medical History Hx Anticoagulant Therapy: Yes Arthritis: Yes Cardiovascular Problems: Yes (HTN, bypass) High Cholesterol: Yes Cerebrovascular Accident: Yes (CVA) Diabetes: Yes (type 2 ) Patient Takes Glucophage: No Diminished Hearing: No Hypertension: Yes Medical other: Yes (osteoporosis ) Musculoskeletal: Yes Neurologic: Yes (neurostimulator left buttock) Reproductive: No Integumentary: Yes Triglycerides - High: Yes Tetanus Vaccination: < 5 Years Influenza Vaccination: Yes : 1 Para: 1 Past Surgical History Abdominal Surgery: Yes (for endometreosis ) Appendectomy: Yes Cardiac Surgery: Yes (CABG) Cholecystectomy: Yes Ear Surgery: No Endocrine Surgery: No Eye Surgery: No Gynecologic Surgery: No Hysterectomy: Yes Oral Surgery: Yes (Denture) Thoracic Surgery: Yes (CABG) Other Surgery: Yes Social History Alcohol Use: No Tobacco Use: No Substance Use: No Allergies-Medications (Allergen,Severity, Reaction): Coded Allergies: nitrofurantoin (Verified Allergy, Severe, throat swells, 05/03/17) nystatin (Verified Allergy, Severe, THROAT SWELLING, 05/03/17) pt states have a allergy to macrodtin Reported Meds & Prescriptions Reported Meds & Active Scripts Active Metoprolol Tartrate 25 Mg Tab 25 Mg PO BID Pravachol (Pravastatin) 40 Mg Tab 40 Mg PO DAILY Isosorbide Mononitrate 20 Mg Tab 60 Mg PO DAILY Gabapentin 300 Mg Cap 300 Mg PO BID Reported Cipro (Ciprofloxacin HCl) 500 Mg Tab 500 Mg PO BID Brimonidine Opth Drops (Brimonidine Tartrate) 0.2% Soln 1 Drop EACH EYE TID Synthroid (Levothyroxine Sodium) 112 Mcg Tab 112 Mcg PO DAILY Lisinopril 20 Mg Tab 20 Mg PO BID Tizanidine (Tizanidine HCl) 4 Mg Cap 4 Mg PO TID Methotrexate 2.5 Mg Tab 7.5 Mg PO Q7D Alendronate (Alendronate Sodium) 70 Mg Tab 70 Mg PO Q7D Tramadol (Tramadol HCl) 50 Mg Tab 50 Mg PO Q8H PRN Norvasc (Amlodipine Besylate) 10 Mg Tab 10 Mg PO DAILY Review of Systems General / Constitutional: No: Chills Eyes: No: Photophobia HENT: No: Sore Throat Cardiovascular: No: Chest Pain or Discomfort Physical Exam Narrative GENERAL: 72-year-old female pleasant well-nourished well-developed Vital Signs Date Time Temp Pulse Resp B/P (MAP) Pulse Ox O2 Delivery O2 Flow Rate FiO2 08/16/17 18:51 98.6 67 16 149/62 (91) 98 SKIN: Warm and dry. HEAD: Normocephalic. EYES: No scleral icterus. No injection or drainage. NECK: Supple, trachea midline. No JVD or lymphadenopathy. CARDIOVASCULAR: Regular rate and rhythm without murmurs, gallops, or rubs. RESPIRATORY: Breath sounds equal bilaterally. No accessory muscle use. GASTROINTESTINAL: Abdomen soft, non-tender, nondistended. MUSCULOSKELETAL: No cyanosis, or edema. BACK: Nontender without obvious deformity. No CVA tenderness. Data Data Last Documented VS Vital Signs Date Time Temp Pulse Resp B/P (MAP) Pulse Ox O2 Delivery O2 Flow Rate FiO2 08/16/17 18:51 98.6 67 16 149/62 (91) 98 Orders Orders Ed Discharge Order (08/16/17 19:24) MDM Medical Decision Making Medical Screen Exam Complete: Yes Emergency Medical Condition: Yes Medical Record Reviewed: Yes Differential Diagnosis Parkinson's disease, stroke, spinal fracture Narrative Course Patient has follow-up with neurology in 2 days. In the ER the gait is within acceptable limits. Patient ready for discharge. Diagnosis Primary Impression: Fall Qualified Codes: W19.XXXA - Unspecified fall, initial encounter Additional Impression: Shuffling gait Referrals: [facility] 2 days Med/Other Pt SpecificInfo: No Change to Meds Disposition: 01 DISCHARGE HOME Condition: Stable Mega Ulrich MD Aug 16, 2017 19:08
== END 2017-08-16 19:50 | disposition home or self-care (01) ==
LOC: PHEFT 18:41
DX: R26.9 Unspecified abnormalities of gait and mobility (principal); I10 Essential (primary) hypertension; E78.00 Pure hypercholesterolemia, unspecified; E11.9 Type 2 diabetes mellitus without complications; M81.0 Age-related osteoporosis without current pathological fracture; W19.XXXA Unspecified fall, initial encounter; Y92.481 Parking lot as the place of occurrence of the external cause; Z79.01 Long term (current) use of anticoagulants; Z95.1 Presence of aortocoronary bypass graft
CPT/HCPCS: 99282